=== PATIENT | male | born 1945 | race Caucasian/White ===

== ENCOUNTER 2024-09-03 08:57 | Inpatient (IN) ==
--- NOTE | 2024-09-03 09:02 | Emergency Department Note ---
Impression & Plan Sepsis, MKIE (acute kidney injury), Goals of care, counseling/discussion, Acute UTI, Multifocal pneumonia, Acute hypoxemic respiratory failure, Dementia ED Provider Note NAME: EVAN VELARDE AGE: 79 SEX: M : 1945 ARRIVES VIA: Ambulance INFORMANT: EMS report, nursing report ED PROVIDER(S): Parish Hernandez MD CHIEF COMPLAINT: Diarrhea, hypotension, hypoxia MEDICAL DECISION MAKING: Patient presents with the above. Patient nonverbal history of dementia. IV was established and blood work was obtained along with a chest x-ray. Patient ordered empiric IV Zosyn blood cultures had already received 1 L prior to arrival and ordered additional 2 L IV fluids. BioFire and MRSA swabs also obtained. Patient was started on high flow. I did speak with the patient's son Leonardo early on to determine goals of care. Son is amenable to treatment but not to intubation or CPR. DNR/DNI status. The patient's blood work shows a white count of 14 with a hemoglobin of 12.3. Platelet count is unremarkable. The patient does have associated MIKE with a creat of 3.8. Initial lactate of 2.6. Patient was still intermittently hypotensive. Patient was ordered additional 500 of fluid after receiving 1 L prehospital and 2 L in the emergency department. Patient did receive greater than 30 cc/kg bolus. Patient did have some improvement in his hypotension. Procalcitonin of 4.4. Initial lactate of 2.6 and repeat was less than 2. Urinalysis does show signs of infection. BioFire negative and chest x-ray does show multifocal pneumonia. MRSA negative. I did discuss the patient's case with the on-call hospitalist. He will discuss further with the patient's son about whether or not to administer any peripheral vasopressors. The patient was having decreased respiratory effort versus being more comfortable and did have hypoxia into the 70s. The patient was easily arousable and did have some improvement in saturations but did increase the patient's high flow settings to 30 L/min at 70%. After further discussion with respiratory therapy did recommend the patient be placed on BiPAP in order to help with further aeration of the lungs which initially had been avoided due to concerns for decreasing preload and exacerbating hypotension. In light of the patient's improvement in his blood pressure and decreased respiratory effort BiPAP was attempted and placed. I did speak with Dr. Chavez inpatient medicine service and the patient was admitted to the medicine service. Additional care deferred to inpatient service in consultation with the patient's son and goals of care. Critical Care: I have personally spent 125 minutes of critical care time in direct management of this patient. This includes bedside care, interpretation of diagnostic studies, and testing, discussion with consultants, patient, and family members, and other require inpatient management activities. This 125 minutes is in excess of all separately billable procedures. Discussion w/ other healthcare providers: Respiratory therapy Dr. Chavez inpatient medicine service Prior /Outside records reviewed: I reviewed part of a urology visit from August [address] Light. Patient with a history of prostate cancer's recent PSA of 26 he presented for a 6-month follow-up and get 6-month Lupron shots. Plan to follow-up in 6 months for repeat PSA and total testosterone. Differential diagnosis: Dehydration, UTI, pneumonia, metabolic derangment, electrolyte abnormalities, hypovolemia, anemia, cellulitis among others were considered. Diagnostics, as interpreted by me: ECG: Sinus with possible PVCs or intermittent left bundle branch block, rate of 96 occasionally wide QRS. No obvious scar Bosa criteria. Repeat EKG interpreted by myself Sinus rhythm rate of 84 normal intervals but noted to have a change to left bundle branch block with similar rate no obvious Sgarbossa criteria Cardiac monitoring: An order was placed for continuous cardiac monitoring. The monitor shows a rate of 89 with sinus rhythm. Patient was placed on pulse oximetry Medical decision rules: None Imaging studies: I informally interpreted the patient's chest x-ray shows multifocal pneumonia with formal report to follow. HPI: Patient presents from care facility with known history of dementia and is nonverbal. Reportedly had diarrhea beginning last night was noted to be hypotensive this morning. Also thought the patient had bilateral rhonchi was given multiple breathing treatments was noted to be at 86% on room air prior to arrival. Patient unable to provide any additional history. Reportedly a full code. No reported fever initial blood pressure 70s over 30s and subsequently improved after 1 L being administered by EMS. Heart rate in the high 100s per EMS. Per review of the prior records patient with known history of dementia as well as prostate cancer. Son provides some history of aspiration and concern for breathing issues. After discussing with the son if he does not turnaround with moderate measures like high flow or BiPAP along with fluids and antibiotics he does not want to do anything additionally like intubation or CPR. PAST MEDICAL HISTORY: See Below PAST SURGICAL HISTORY: See Below SOCIAL HISTORY: See Below HOME MEDICATIONS: See Below ALLERGIES: See Below VITALS: See Below PHYSICAL EXAMINATION: GENERAL: Ill in appearance, moderate distress. Nasal cannula in place. EYE EXAM: Normal conjunctiva. PERRL, no anisocoria and EOM's grossly intact w/o pain. OROPHARYNX: Dry mucus membranes, grossly normal dentition. NECK: Trachea midline, no stridor. LUNGS: Rhonchi bilaterally. Tachypneic, shallow breathing. HEART: NSR, no MRG. ABDOMEN: Abdomen soft, no masses, no rebound or guarding. BACK: No CVA TTP. SKIN: No rashes and no bruising. UPPER EXTREMITIES: Upper extremities are grossly normal. LOWER EXTREMITIES: Grossly normal, no edema. NEURO EXAM: Awake and alert does not follow basic commands, moves all 4 extremities. Past Med/Surg History Problem List (Updated 09/03/24 @ 16:27 by Parish Hernandez MD) Dementia (Acute) Acute hypoxemic respiratory failure (Acute) Multifocal pneumonia (Acute) Acute UTI (Acute) Goals of care, counseling/discussion (Acute) MIKE (acute kidney injury) (Acute) Diarrhea Sepsis (Acute) Urge incontinence Prostate cancer (Chronic 12/06/21) Medical History Alzheimer disease Dementia Hypertension Diverticulitis Allergic rhinitis Surgical History S/P rotator cuff repair Bilateral History of cystoscopy Hx of colonoscopy S/P left knee arthroscopy History of left knee replacement History of surgery Pilonidal cyst History of colon resection Sigmoid resection Family History Mother , 91yo Diabetes Heart failure Father , 72yo Coronary heart disease Rheumatic fever Sister Arrhythmia Pacemaker Son No problems noted. Son No problems noted. 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 How many Children do You have: 2 Feels Safe at Home: Yes Diet: regular caffeine: Yes (2 cups/day) during the past year weight has: remained stable Assistive Devices: BiPap, Oxygen - Continuous and Walker Allergies Allergies Allergy/AdvReac Type Severity Reaction Status Date / Time No Known Allergies Allergy Unverified 01/19/24 08:49 Home Meds Home Medications Medication Instructions Recorded Confirmed tamsulosin 0.4 mg capsule 0.4 mg PO DAILY 07/26/22 09/03/24 acetaminophen 325 mg capsule 650 mg PO BID Pain/Fever 11/02/22 09/03/24 cholecalciferol (vitamin D3) 50 50 mcg PO DAILY 11/02/22 09/03/24 mcg (2,000 unit) capsule cyanocobalamin (vitamin B-12) 1,000 mcg PO QAM 11/02/22 09/03/24 1,000 mcg tablet (Vitamin B-12) magnesium hydroxide 400 mg/5 mL 30 ml PO Q48H PRN Constipation 11/02/22 09/03/24 oral suspension (Milk of Magnesia) melatonin 3 mg capsule 3 mg PO HS 02/13/23 09/03/24 acetaminophen 325 mg tablet 650 mg PO Q4H PRN Pain/Fever 09/03/24 09/03/24 albuterol sulfate 2.5 mg/3 mL 2.5 mg continuous nebulization Q2H 09/03/24 09/03/24 (0.083 %) solution for nebulization PRN SOB/Wheezing bisacodyl 10 mg rectal suppository 10 mg CO Q48H PRN Constipation 09/03/24 09/03/24 (Dulcolax (bisacodyl)) cholestyramine (with sugar) 4 gram 2 g PO QAM Loose Stools 09/03/24 09/03/24 oral powder menthol 4 % topical gel (Biofreeze 1 applic topical BID B/L knee pain 09/03/24 09/03/24 (menthol)) Previous Rx's Medication Instructions Recorded vibegron 75 mg tablet (Gemtesa) 75 mg PO DAILY #90 tabs 08/19/22 Results & Data (ED) Vital Signs Vital Signs - 24 hr 09/03/24 09:07 09/03/24 09:11 09/03/24 09:17 Temperature 36.4 C L Temperature Source Oral Pulse Rate 97 H 89 Pulse Rate [Apical] Pulse Rate from SpO2 Sensor Pulse Rhythm Respiratory Rate 30 H Respiratory Effort / Characteristics Non-Labored Spontaneous Respiratory Depth Normal Respiratory Pattern Blood Pressure 87/52 L Blood Pressure Mean 63 Blood Pressure Position Sitting Pulse Oximetry 89 L 89 L Oxygen Delivery Method Room Air Room Air Oxygen Flow Rate Fraction of Inspired Oxygen Sepsis Recent Fever Within 48 Hours No Sepsis New/Unexplained Change in Mental Status No Sepsis Action Taken by Nursing Physician Notified Oxygen Flow Rate - Titration 4 Pulse Oximetry Post Tiitration 92 09/03/24 09:30 09/03/24 09:30 09/03/24 09:35 Temperature Temperature Source Pulse Rate 97 H 93 H Pulse Rate [Apical] 103 H Pulse Rate from SpO2 Sensor Pulse Rhythm Respiratory Rate 30 H 29 H 32 H Respiratory Effort / Characteristics Spontaneous Respiratory Depth Respiratory Pattern Blood Pressure 78/47 L 89/58 L Blood Pressure Mean 59 63 Blood Pressure Position Pulse Oximetry 94 96 96 Oxygen Delivery Method High Flow Nasal Cannula High Flow Nasal Cannula High Flow Nasal Cannula Oxygen Flow Rate 25 Fraction of Inspired Oxygen 60 Sepsis Recent Fever Within 48 Hours Sepsis New/Unexplained Change in Mental Status Sepsis Action Taken by Nursing Oxygen Flow Rate - Titration Pulse Oximetry Post Tiitration 09/03/24 09:38 09/03/24 09:40 09/03/24 09:42 Temperature Temperature Source Pulse Rate 84 95 H 95 H Pulse Rate [Apical] Pulse Rate from SpO2 Sensor 94 H Pulse Rhythm Regular Respiratory Rate 14 36 H Respiratory Effort / Characteristics Respiratory Depth Respiratory Pattern Blood Pressure 87/58 L Blood Pressure Mean 66 Blood Pressure Position Pulse Oximetry 95 93 93 Oxygen Delivery Method High Flow Nasal Cannula High Flow Nasal Cannula Oxygen Flow Rate Fraction of Inspired Oxygen Sepsis Recent Fever Within 48 Hours Sepsis New/Unexplained Change in Mental Status Sepsis Action Taken by Nursing Oxygen Flow Rate - Titration Pulse Oximetry Post Tiitration 09/03/24 09:45 09/03/24 09:50 09/03/24 09:50 Temperature Temperature Source Pulse Rate 88 88 Pulse Rate [Apical] Pulse Rate from SpO2 Sensor Pulse Rhythm Respiratory Rate 39 H 30 H 20 Respiratory Effort / Characteristics Respiratory Depth Respiratory Pattern Blood Pressure 89/56 L 99/61 L 99/61 L Blood Pressure Mean 78 85 85 Blood Pressure Position Pulse Oximetry 95 94 93 Oxygen Delivery Method High Flow Nasal Cannula High Flow Nasal Cannula Oxygen Flow Rate Fraction of Inspired Oxygen Sepsis Recent Fever Within 48 Hours Sepsis New/Unexplained Change in Mental Status Sepsis Action Taken by Nursing Oxygen Flow Rate - Titration Pulse Oximetry Post Tiitration 09/03/24 10:05 09/03/24 10:10 09/03/24 10:15 Temperature Temperature Source Pulse Rate 88 89 88 Pulse Rate [Apical] Pulse Rate from SpO2 Sensor Pulse Rhythm Respiratory Rate 20 17 17 Respiratory Effort / Characteristics Respiratory Depth Respiratory Pattern Blood Pressure 108/55 L 82/58 L 88/50 L Blood Pressure Mean 67 71 70 Blood Pressure Position Pulse Oximetry 92 94 94 Oxygen Delivery Method Oxygen Flow Rate Fraction of Inspired Oxygen Sepsis Recent Fever Within 48 Hours Sepsis New/Unexplained Change in Mental Status Sepsis Action Taken by Nursing Oxygen Flow Rate - Titration Pulse Oximetry Post Tiitration 09/03/24 10:20 09/03/24 10:25 09/03/24 10:35 Temperature Temperature Source Pulse Rate 87 83 80 Pulse Rate [Apical] Pulse Rate from SpO2 Sensor Pulse Rhythm Respiratory Rate 18 Respiratory Effort / Characteristics Respiratory Depth Respiratory Pattern Blood Pressure 81/48 L 88/68 L 86/48 L Blood Pressure Mean 52 72 57 Blood Pressure Position Pulse Oximetry 88 L Oxygen Delivery Method High Flow Nasal Cannula Oxygen Flow Rate Fraction of Inspired Oxygen Sepsis Recent Fever Within 48 Hours Sepsis New/Unexplained Change in Mental Status Sepsis Action Taken by Nursing Oxygen Flow Rate - Titration Pulse Oximetry Post Tiitration 09/03/24 10:40 09/03/24 10:45 09/03/24 10:50 Temperature Temperature Source Pulse Rate 88 85 86 Pulse Rate [Apical] Pulse Rate from SpO2 Sensor Pulse Rhythm Respiratory Rate Respiratory Effort / Characteristics Respiratory Depth Respiratory Pattern Blood Pressure 90/46 L 88/45 L 87/50 L Blood Pressure Mean 54 55 57 Blood Pressure Position Pulse Oximetry Oxygen Delivery Method Oxygen Flow Rate Fraction of Inspired Oxygen Sepsis Recent Fever Within 48 Hours Sepsis New/Unexplained Change in Mental Status Sepsis Action Taken by Nursing Oxygen Flow Rate - Titration Pulse Oximetry Post Tiitration 09/03/24 10:50 09/03/24 10:50 09/03/24 10:50 Temperature Temperature Source Pulse Rate 89 Pulse Rate [Apical] Pulse Rate from SpO2 Sensor Pulse Rhythm Respiratory Rate Respiratory Effort / Characteristics Respiratory Depth Respiratory Pattern Blood Pressure 87/50 L 87/50 L 87/50 L Blood Pressure Mean 57 57 57 Blood Pressure Position Pulse Oximetry Oxygen Delivery Method Oxygen Flow Rate Fraction of Inspired Oxygen Sepsis Recent Fever Within 48 Hours Sepsis New/Unexplained Change in Mental Status Sepsis Action Taken by Nursing Oxygen Flow Rate - Titration Pulse Oximetry Post Tiitration 09/03/24 10:55 09/03/24 11:05 09/03/24 11:11 Temperature Temperature Source Pulse Rate 86 89 Pulse Rate [Apical] Pulse Rate from SpO2 Sensor Pulse Rhythm Respiratory Rate 29 H Respiratory Effort / Characteristics Respiratory Depth Respiratory Pattern Blood Pressure 84/47 L 90/55 L Blood Pressure Mean 51 63 Blood Pressure Position Pulse Oximetry 99 Oxygen Delivery Method BiPAP Oxygen Flow Rate Fraction of Inspired Oxygen Sepsis Recent Fever Within 48 Hours Sepsis New/Unexplained Change in Mental Status Sepsis Action Taken by Nursing Oxygen Flow Rate - Titration Pulse Oximetry Post Tiitration 09/03/24 11:12 09/03/24 11:15 09/03/24 11:20 Temperature Temperature Source Pulse Rate 85 87 85 Pulse Rate [Apical] Pulse Rate from SpO2 Sensor Pulse Rhythm Respiratory Rate 28 H 37 H Respiratory Effort / Characteristics Respiratory Depth Respiratory Pattern Blood Pressure 105/61 91/65 L Blood Pressure Mean 74 71 Blood Pressure Position Pulse Oximetry 98 99 Oxygen Delivery Method Oxygen Flow Rate Fraction of Inspired Oxygen Sepsis Recent Fever Within 48 Hours Sepsis New/Unexplained Change in Mental Status Sepsis Action Taken by Nursing Oxygen Flow Rate - Titration Pulse Oximetry Post Tiitration 09/03/24 11:25 09/03/24 11:30 09/03/24 11:40 Temperature Temperature Source Pulse Rate 85 85 Pulse Rate [Apical] Pulse Rate from SpO2 Sensor Pulse Rhythm Respiratory Rate 37 H 31 H Respiratory Effort / Characteristics Respiratory Depth Respiratory Pattern Blood Pressure 104/57 L 99/67 L 107/57 L Blood Pressure Mean 80 71 83 Blood Pressure Position Pulse Oximetry 99 100 Oxygen Delivery Method Oxygen Flow Rate Fraction of Inspired Oxygen Sepsis Recent Fever Within 48 Hours Sepsis New/Unexplained Change in Mental Status Sepsis Action Taken by Nursing Oxygen Flow Rate - Titration Pulse Oximetry Post Tiitration 09/03/24 11:45 09/03/24 12:02 Temperature Temperature Source Pulse Rate 86 85 Pulse Rate [Apical] Pulse Rate from SpO2 Sensor Pulse Rhythm Respiratory Rate 32 H 23 Respiratory Effort / Characteristics Spontaneous Respiratory Depth Normal Respiratory Pattern Regular Tachypnea Blood Pressure 97/52 L Blood Pressure Mean 67 Blood Pressure Position Pulse Oximetry 97 96 Oxygen Delivery Method Oxygen Flow Rate Fraction of Inspired Oxygen 65 Sepsis Recent Fever Within 48 Hours Sepsis New/Unexplained Change in Mental Status Sepsis Action Taken by Nursing Oxygen Flow Rate - Titration Pulse Oximetry Post Tiitration Home Medications Current Medication List: was personally reviewed by me Laboratory Data Attestation: I reviewed the patient's lab results. 09/03/24 09:29 09/03/24 09:29 Lab Results 09/03/24 09/03/24 09/03/24 Range/Units 09:29 09:35 09:47 WBC 14.17 H (4.8-10.8) K/ul RBC 4.33 L (4.70-6.10) M/uL Hgb 12.3 L (14.0-18.0) g/dl POC Hgb 12.6 L (14.0-18.0) g/dl Hct 38.2 L (42.0-52.0) % POC Hct 37 L (42-52) % MCV 88.2 (80.0-100.0) fL MCH 28.4 (25.0-34.0) pg MCHC 32.2 (32.0-36.0) g/dL RDW Std Deviation 51.7 H (36.4-46.3) fL RDW Coeff of Susan 15.9 H (11.5-14.5) % Plt Count 287 (130-400) K/uL MPV 12.2 (9.4-12.4) fL Immature Gran % (Auto) 0.5 % Neut % (Auto) 86.2 % Lymph % (Auto) 6.8 % Scott % (Auto) 6.4 % Eos % (Auto) 0.0 % Baso % (Auto) 0.1 % Neut # (Auto) 12.23 H (1.40-6.50) K/uL Lymph # (Auto) 0.96 L (1.20-3.40) K/uL Scott # (Auto) 0.90 H (0.11-0.59) K/uL Eos # (Auto) 0.00 (0.00-0.50) K/uL Baso # (Auto) 0.01 (0.00-0.20) K/uL Immature Gran # (Auto) 0.07 (0.01-0.20) K/uL PT 11.2 (9.0-12.0) Seconds INR 1.0 (0.9-1.1) APTT 25 (21-31) Seconds PTT Ratio 0.9 VBG pH (7.36-7.41) VBG pCO2 (38-50) mmHg VBG pO2 mmHg VBG HCO3 mmol/L VBG O2 Saturation % VBG Base Excess mEq/L POC Sodium 147 H (135-144) mmol/L Sodium 147 H (136-145) mmol/L POC Potassium 3.8 (3.3-5.0) mmol/L Potassium 4.0 (3.5-5.1) mmol/L POC Chloride 109 (101-112) mmol/L Chloride 109 H (98-107) mmol/L Carbon Dioxide 26 (21-32) mmol/L POC Total CO2 24 (24-31) mmol/L Anion Gap 12 H (3-11) POC Anion Gap 19.0 (16-25) mmol/L POC BUN 81 H (7-18) mg/dl BUN 93 H D (6-23) mg/dl Creatinine 3.82 H D (0.6-1.4) mg/dl POC Creatinine 4.0 H (0.6-1.3) mg/dl Est Cr Clr Drug Dosing 18.4 ml/min eGFR 15.43 BUN/Creatinine Ratio 24.3 H (10-20) Glucose 128 H (70-99(Fasting)) mg/dl POC Glucose (other) 132 H (70-99) mg/dl Lactate 2.6 H* (0.4-2.0) mmol/L Calcium 9.1 (8.6-10.3) mg/dl POC Ioniz Calcium Katelynn 1.10 L (1.12-1.32) mmol/l Magnesium 2.3 (1.7-2.4) mg/dl Total Bilirubin 0.7 D (0.2-1.0) mg/dl Direct Bilirubin 0.2 (0-0.2) mg/dl AST 47 H (13-39) U/L ALT 40 (7-52) U/L Alkaline Phosphatase 46 (34-104) U/L Troponin I High Sens 63.8 H* (0-20) pg/ml B-Natriuretic Peptide (0-100) pg/ml Total Protein 6.1 (6.0-8.3) gm/dl Albumin 2.9 L (3.4-5.0) gm/dl Procalcitonin 4.42 H (0-0.5) ng/ml Nasal Screen MRSA (PCR) Negative (Negative) Adenovirus (PCR) (NotDetected) B. pertussis DNA (PCR) (NotDetected) B.parapertussis DNA PCR (NotDetected) C. pneumoniae DNA (PCR) (NotDetected) Coronavirus OC43 (PCR) (NotDetected) Coronavirus HKU1 (PCR) (NotDetected) Coronavirus 229E (PCR) (NotDetected) SARS-CoV-2 (PCR) (NotDetected) Coronavirus NL63 (PCR) (NotDetected) Human Metapneumovir PCR (NotDetected) Influenza Type A (PCR) (NotDetected) Influenza Type B (PCR) (NotDetected) M. pneumoniae (PCR) (NotDetected) Parainfluenza 1 (PCR) (NotDetected) Parainfluenza 2 (PCR) (NotDetected) Parainfluenza 3 (PCR) (NotDetected) Parainfluenza 4 (PCR) (NotDetected) RSV (PCR) (NotDetected) Entero/Rhino (PCR) (NotDetected) 09/03/24 09/03/24 Range/Units 11:04 11:16 WBC (4.8-10.8) K/ul RBC (4.70-6.10) M/uL Hgb (14.0-18.0) g/dl POC Hgb (14.0-18.0) g/dl Hct (42.0-52.0) % POC Hct (42-52) % MCV (80.0-100.0) fL MCH (25.0-34.0) pg MCHC (32.0-36.0) g/dL RDW Std Deviation (36.4-46.3) fL RDW Coeff of Susan (11.5-14.5) % Plt Count (130-400) K/uL MPV (9.4-12.4) fL Immature Gran % (Auto) % Neut % (Auto) % Lymph % (Auto) % Scott % (Auto) % Eos % (Auto) % Baso % (Auto) % Neut # (Auto) (1.40-6.50) K/uL Lymph # (Auto) (1.20-3.40) K/uL Scott # (Auto) (0.11-0.59) K/uL Eos # (Auto) (0.00-0.50) K/uL Baso # (Auto) (0.00-0.20) K/uL Immature Gran # (Auto) (0.01-0.20) K/uL PT (9.0-12.0) Seconds INR (0.9-1.1) APTT (21-31) Seconds PTT Ratio VBG pH 7.41 (7.36-7.41) VBG pCO2 41 (38-50) mmHg VBG pO2 73 mmHg VBG HCO3 26 mmol/L VBG O2 Saturation 96.5 % VBG Base Excess 1.2 mEq/L POC Sodium (135-144) mmol/L Sodium (136-145) mmol/L POC Potassium (3.3-5.0) mmol/L Potassium (3.5-5.1) mmol/L POC Chloride (101-112) mmol/L Chloride (98-107) mmol/L Carbon Dioxide (21-32) mmol/L POC Total CO2 (24-31) mmol/L Anion Gap (3-11) POC Anion Gap (16-25) mmol/L POC BUN (7-18) mg/dl BUN (6-23) mg/dl Creatinine (0.6-1.4) mg/dl POC Creatinine (0.6-1.3) mg/dl Est Cr Clr Drug Dosing ml/min eGFR BUN/Creatinine Ratio (10-20) Glucose (70-99(Fasting)) mg/dl POC Glucose (other) (70-99) mg/dl Lactate 1.9 (0.4-2.0) mmol/L Calcium (8.6-10.3) mg/dl POC Ioniz Calcium Katelynn (1.12-1.32) mmol/l Magnesium (1.7-2.4) mg/dl Total Bilirubin (0.2-1.0) mg/dl Direct Bilirubin (0-0.2) mg/dl AST (13-39) U/L ALT (7-52) U/L Alkaline Phosphatase (34-104) U/L Troponin I High Sens (0-20) pg/ml B-Natriuretic Peptide 106 H (0-100) pg/ml Total Protein (6.0-8.3) gm/dl Albumin (3.4-5.0) gm/dl Procalcitonin (0-0.5) ng/ml Nasal Screen MRSA (PCR) (Negative) Adenovirus (PCR) Not Detected (NotDetected) B. pertussis DNA (PCR) Not Detected (NotDetected) B.parapertussis DNA PCR Not Detected (NotDetected) C. pneumoniae DNA (PCR) Not Detected (NotDetected) Coronavirus OC43 (PCR) Not Detected (NotDetected) Coronavirus HKU1 (PCR) Not Detected (NotDetected) Coronavirus 229E (PCR) Not Detected (NotDetected) SARS-CoV-2 (PCR) Not Detected (NotDetected) Coronavirus NL63 (PCR) Not Detected (NotDetected) Human Metapneumovir PCR Not Detected (NotDetected) Influenza Type A (PCR) Not Detected (NotDetected) Influenza Type B (PCR) Not Detected (NotDetected) M. pneumoniae (PCR) Not Detected (NotDetected) Parainfluenza 1 (PCR) Not Detected (NotDetected) Parainfluenza 2 (PCR) Not Detected (NotDetected) Parainfluenza 3 (PCR) Not Detected (NotDetected) Parainfluenza 4 (PCR) Not Detected (NotDetected) RSV (PCR) Not Detected (NotDetected) Entero/Rhino (PCR) Not Detected (NotDetected) Administered Medications Lactated Ringer's (Lr) 1,000 mls @ 125 mls/hr IV .Q8H YAHAIRA Stop: 09/04/24 13:29 Last Admin: 09/03/24 13:27 Dose: 125 mls/hr Documented By: CM Discontinued Medications Sodium Chloride (Nss) 1,000 mls @ 999 mls/hr IV .Q1H1M YAHAIRA Stop: 09/03/24 11:30 Last Infusion: 09/03/24 10:19 Dose: Infused Documented By: Admin: 09/03/24 09:34 Dose: 999 mls/hr Documented By: Infusion: 09/03/24 09:34 Dose: Infused Documented By: Admin: 09/03/24 09:32 Dose: 999 mls/hr Documented By: ANT Piperacillin Sod/Tazobactam Sod (Zosyn) 4.5 gm in 100 mls @ 200 mls/hr IV NOW STA Stop: 09/03/24 09:45 Last Infusion: 09/03/24 10:08 Dose: Infused Documented By: Admin: 09/03/24 09:34 Dose: 200 mls/hr Documented By: ANT Norepinephrine Bitartrate (Levophed/D5w) 4 mg in 250 mls @ 17.681 mls/hr IV .Q14H9M [facility]; Protocol Stop: 10/03/24 11:14 Last Admin: 09/03/24 11:49 Dose: Not Given Documented By: ANT Imaging Data Radiologist's Impression: Chest X-Ray 09/03/24 09:16 XR chest 1V portable HISTORY: 79 years-old Male Sepsis COMPARISON: 02/05/2022 TECHNIQUE: AP view of the chest FINDINGS: Cardiac silhouette is enlarged. The lungs are hypoinflated. Pulmonary vascular congestion with bilateral mixed interstitial and alveolar opacities. Probable small pleural effusions. No pneumothorax. Gaseous distention of the stomach. The bones appear grossly intact. IMPRESSION: Hypoinflation with bilateral mixed interstitial and alveolar opacities. Findings suggest multifocal pneumonia with asymmetric pulmonary edema considered less likely. Follow-up recommended. ACT 112: Negative or not required by law. The above report was generated using voice recognition software. It may contain grammatical, syntax or spelling errors. Electronically signed by: Robin Laboy M.D. 09/03/2024 9:52 AM Abdomen/Pelvis CT 09/03/24 10:[address] WITHOUT CONTRAST CT DOSE: 1576.9 mGy.cm HISTORY: Acute kidney injury with urinary tract infection MIKE, UTI sepsis TECHNIQUE: Multiaxial CT images of the abdomen and pelvis were performed without contrast. A dose lowering technique was utilized adhering to the principles of ALARA. COMPARISON STUDY: None. FINDINGS: Cardiomegaly with extensive coronary artery calcifications. Trace pleural effusions with dependent bibasilar consolidation and air bronchograms within a mixed groundglass opacities. No pneumatosis or pneumoperitoneum. The unenhanced spleen, pancreas and adrenal glands are unremarkable. Distended gallbladder with wall thickening and pericholecystic fluid. Unremarkable liver. Cysts of the kidneys measuring up to 4.7 cm on the right. No ureteral calculi or hydronephrosis. Decompressed bladder with wall thickening and Goldman catheter in place. Prostatomegaly. Small fat filled left inguinal hernia. Atherosclerosis of the aorta without aneurysm. Nonspecific mid to distal esophageal mild wall thickening. Distended stomach. Mild likely reactive wall thickening of the pylorus duodenal junction. Moderate- sized duodenal diverticulum. No high-grade small bowel obstruction. Scattered small bowel air-fluid levels. Moderate rectal fecal retention with associated wall thickening and perirectal stranding/edema. Anastomotic sutures in the mid sigmoid. Colonic diverticulosis without acute diverticulitis. Scattered colonic air-fluid levels. Noninflamed appendix. No acute fracture identified. IMPRESSION: 1. Findings suggestive of acute cholecystitis. Findings could be correlated with ultrasound. 2. No urolithiasis or hydronephrosis. 3. Moderate fecal retention of the rectum with probable stercoral proctitis. 4. Colonic diverticulosis. 5. Trace pleural effusions with moderate bibasilar consolidation which may represent atelectasis versus pneumonia. 6. Additional findings as above. ACT 112: Negative or not required by law. The above report was generated using voice recognition software. It may contain grammatical, syntax or spelling errors. Electronically signed by: Robin Laboy M.D. 09/03/2024 1:07 PM Discharge Plan Visit Data Chief Complaint: Hypotension Stated Complaint: HYPOTENSION ED Provider: Parish Hernandez Discharge Problem: Sepsis, MIKE (acute kidney injury), Goals of care, counseling/discussion, Acute UTI, Multifocal pneumonia, Acute hypoxemic respiratory failure, Dementia Discharge Instructions Interventions: ED Discharge Assessment Last Done: 09/03/24 12:50 Discharge Problem: Sepsis Qualifiers: Sepsis type: sepsis due to unspecified organism Sepsis acute organ dysfunction status: with acute organ dysfunction Severe sepsis acute organ dysfunction type: acute respiratory failure Acute respiratory failure type: with hypoxia Severe sepsis shock status: unspecified Qualified Code(s): A41.9 - Sepsis, unspecified organism Dementia Qualifiers: Dementia type: unspecified type Dementia severity: unspecified severity D ementia behavioral or psychological symptom: unspecified whether behavioral, psychotic, or mood disturbance or anxiety Qualified Code(s): F03.90 - Unspecified dementia, unspecified severity, without behavioral disturbance, psychotic disturbance, mood disturbance, and anxiety
[2024-09-03] MEDS: SODIUM CHLORIDE 0.9% 1,000 ML IV SCH (09:32)
[2024-09-03] MEDS: PIPERACILLIN/TAZOBACTAM 4.5 GM/100 ML BAG IV STA (09:34)
--- NOTE | 2024-09-03 09:54 | XRay Report ---
XR chest 1V portable HISTORY: 79 years-old Male Sepsis COMPARISON: 02/05/2022 TECHNIQUE: AP view of the chest FINDINGS: Cardiac silhouette is enlarged. The lungs are hypoinflated. Pulmonary vascular congestion with bilate ral mixed interstitial and alveolar opacities. Probable small pleural effusions. No pneumothorax. Gas eous distention of the stomach. The bones appear grossly intact. IMPRESSION: Hypoinflation with bilateral mixed interstitial and alveolar opacities. Findings suggest multifocal pneumonia with asymmetric pulmonary edema considered less likely. Follow-up recommended. ACT 112: Negative or not required by law. The above report was generated using voice recognition software. It may contain grammatical, syntax o r spelling errors. Electronically signed by: Robin Laboy M.D. 09/03/2024 9:52 AM
[2024-09-03 09:59] LABS: iSTAT Hemoglobin 12.6 g/dl (14.0-18.0); iSTAT Ionized Calcium 1.1 mmol/l (1.12-1.32); iSTAT Potassium 3.8 mmol/L (3.3-5.0)
[2024-09-03 10:11] LABS: Basophils # (auto) 0.01 K/uL (0.00-0.20); Basophils % (auto) 0.1 %; Hematocrit (blood only) 38.2 % (42.0-52.0); Hemoglobin 12.3 g/dl (14.0-18.0); Immature Granulocytes # (auto) 0.07 K/uL (0.01-0.20); Immature Granulocytes % (auto) 0.5 %; Lymphocytes # (auto) 0.96 K/uL (1.20-3.40); Lymphocytes % (auto) 6.8 %; Mean Corpuscular Hemoglobin 28.4 pg (25.0-34.0); Mean Corpuscular Hgb Conc 32.2 g/dL (32.0-36.0); Mean Corpuscular Volume 88.2 fL (80.0-100.0); Mean Platelet Volume 12.2 fL (9.4-12.4); Monocytes % (auto) 6.4 %; Neutrophils # (auto) 12.23 K/uL (1.40-6.50); Neutrophils % (auto) 86.2 %; Platelet Count 287 K/uL (130-400); RDW Coefficient of Variation 15.9 % (11.5-14.5); RDW Standard Deviation 51.7 fL (36.4-46.3); Red Blood Count 4.33 M/uL (4.70-6.10); White Blood Count 14.17 K/ul (4.8-10.8)
[2024-09-03 10:36] LABS: Partial Thromboplastin Ratio 0.9; Partial Thromboplastin Time 25 Seconds (21-31); Prothrombin Time 11.2 Seconds (9.0-12.0)
[2024-09-03 10:37] LABS: Amorphous Sediment Urine Present (None Prsent); Appearance Urine Turbid (Clear); Bacteria Urine Automated None Seen (None Seen); Bilirubin Urine 2+ (Negative); Blood Urine Trace (Negative); Color Urine Dark Yellow; Epithelial Cell Urine Auto 0-2 /hpf (0-2); Glucose Urine UA 1+ (Negative); Ketones Urine Trace (Negative); Leukocyte Esterase Urine 2+ (Negative); Nitrite Urine Positive (Negative); Protein Urine 1+ (Negative); RBC Urine Automated >20 /hpf (0-2); Specific Gravity Urine 1.029 (1.000-1.030); Urobilinogen Urine Negative (Negative); WBC Urine Automated 21-50 /hpf (0-5)
[2024-09-03 10:44] LABS: Albumin Level 2.9 gm/dl (3.4-5.0); BUN Creatinine Ratio 24.3 (10-20); Bilirubin Direct 0.2 mg/dl (0-0.2); Bilirubin,Total 0.7 mg/dl (0.2-1.0); Calcium 9.1 mg/dl (8.6-10.3); Creatinine Clr Calc Pharmacy 18.4 ml/min; Magnesium 2.3 mg/dl (1.7-2.4); Total Protein 6.1 gm/dl (6.0-8.3); Troponin I High Sensitivity 63.8 pg/ml (0-20)
[2024-09-03] MEDS ORDERED: STAT IV Infusion **Titration per Protocol STA (11:07)
[2024-09-03 11:11] LABS: Base Excess VBG 1.2 mEq/L; HCO3 VBG 26 mmol/L; Oxygen Saturation VBG 96.5 %; PCO2 VBG 41 mmHg (38-50); PO2 VBG 73 mmHg; pH VBG 7.41 (7.36-7.41)
--- NOTE | 2024-09-03 11:16 | History & Physical Report ---
Date of Service September 03, 2024 Assessment & Plan (1) Sepsis: Plan: Suspect secondary to urinary source, less likely pneumonia/diarrhea Follow up blood and urine cultures although notably may be negative as ceftriaxone started the day prior to admission No cultures taken outpatient to follow up on WBC appears to have been responding to ceftriaxone 1g IM given outpatient therefore if cultures negative consider deescalation to ceftriaxone Empiric treatment with IV Zosyn pending culture results Levophed ordered by BP improved with IV fluids and never started therefore not septic shock - discussed with sons at bedside and now BP has improved if it gets worse again will switch to comfort care approiach rather than start vasopressors (2) MIKE (acute kidney injury): Plan: Suspect secondary to hypotension and pre-renal from diarrhea in setting of valsartan use Last took valsartan 09/01, discontinued since CT A/P wo IV contrast to r/o obstructive cause Continue maintenance IV fluids with LR, will avoid D5w initially to correct hypernatremia to avoid worsening respiratory status / pulmonary edema (3) Diarrhea: Plan: Stool and c. 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 Unable to get any history from patient given non verbal with dementia at baseline. He opens his eyes to voice and able to follow simple commands such as test rider fingers. History obtained from ER provider, hand over noted and FCO Hernadez (charge nurse at [facility]). Patient spiked a temperature yesterday morning of 102 degrees Fahrenheit around 6am. He was seen by Dr Long and had increased respiratory rate 30, audible wheezing, new hypoxia. CXR was negative but he was started on Ceftriaxone 1g IM daily to cover for pneumonia. Valsartan was discontinued and ordered to increased oral fluid intake. Overnight he started having liquid stool and duoneb for wheezing and shortness of breath. This morning he was more hypotensive with his sBP in 50s and EMS called. He received 1L NSS bolus prior to arrival in the ER. At baseline he is a full body lift, doesn't communicate, eats with assistance pureed diet. He arrives with a POLST form wanting full resuscitation however ER provider discussed with his son over the phone and wishes to change this to DNR/DNI. Allergies Allergy/AdvReac Type Severity Reaction Status Date / Time No Known Allergies Allergy Unverified 01/19/24 08:49 Home Medications Medication Instructions Recorded Confirmed Type donepezil 10 mg tablet 10 mg PO QAM 02/05/22 02/13/23 History tamsulosin 0.4 mg capsule 0.4 mg PO DAILY 07/26/22 02/13/23 History vibegron 75 mg tablet (Gemtesa) 75 mg PO DAILY #90 tabs 08/19/22 02/13/23 Rx acetaminophen 325 mg capsule 650 mg PO QID PRN 11/02/22 02/13/23 History bisacodyl 10 mg rectal suppository 10 mg NJ Q48H PRN 11/02/22 02/13/23 History (Dulcolax (bisacodyl)) cholecalciferol (vitamin D3) 50 50 mcg PO DAILY 11/02/22 02/13/23 History mcg (2,000 unit) capsule cyanocobalamin (vitamin B-12) 1,000 mcg PO QAM 11/02/22 02/13/23 History 1,000 mcg tablet (Vitamin B-12) eplerenone 25 mg tablet 25 mg PO DAILY 11/02/22 02/13/23 History magnesium hydroxide 400 mg/5 mL 30 ml PO Q48H PRN 11/02/22 02/13/23 History oral suspension (Milk of Magnesia) valsartan 40 mg tablet 40 mg PO DAILY 11/02/22 02/13/23 History melatonin 3 mg capsule 3 mg PO HS PRN 02/13/23 02/13/23 History nutritional supplements ea PO 01/19/24 01/19/24 History valsartan 40 mg tablet 40 mg PO BID 01/19/24 01/19/24 History Past Med/Surg History Problem List (Updated 09/03/24 @ 13:19 by Bharath Chavez MD) Goals of care, counseling/discussion MIKE (acute kidney injury) Diarrhea Sepsis Urge incontinence Prostate cancer (Chronic 12/06/21) Medical History Alzheimer disease Dementia Hypertension Diverticulitis Allergic rhinitis Surgical History S/P rotator cuff repair Bilateral History of cystoscopy Hx of colonoscopy S/P left knee arthroscopy History of left knee replacement History of surgery Pilonidal cyst History of colon resection Sigmoid resection Family History Mother , 91yo Diabetes Heart failure Father , 72yo Coronary heart disease Rheumatic fever Sister Arrhythmia Pacemaker Son No problems noted. Son No problems noted. 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 How many Children do You have: 2 Feels Safe at Home: Yes Diet: regular caffeine: Yes (2 cups/day) during the past year weight has: remained stable Assistive Devices: Walker Review of Systems Review of Systems: Unobtainable due to cognitive status Physical Exam Constitutional: well developed and + acute distress (increased respiratory rate); + not well nourished Eyes: PERRL, conjunctivae normal, anicteric sclerae ENMT: external ear and nose normal, oropharynx normal Respiratory: normal respiratory effort; no respiratory distress Auscultation: + rhonchi (throughout); breath sounds present, no diminished lung sounds and no wheezes Cardiovascular: Rate/Rhythm: regular rate and regular rhythm Gastrointestinal (Abdomen): Inspection/Auscultation: + abdomen distended Percussion/Palpation: abdomen soft; abdomen nontender, no guarding and abdomen not rigid Skin: no rashes, warm and dry (no areas of cellulitis noted) Neurologic: moves all extremities and awake; not confused Psychiatric: Orientation: alert (to voice); + not oriented x 3 (non verbal at baseline) Genitourinary: no CVA tenderness Results & Data Results & Data Vital Signs (Past 12 Hours) Vital Signs Temp Pulse Pulse Resp BP Pulse Ox O2 Del Method 09/03/24 11:12 85 09/03/24 11:11 89 09/03/24 10:55 86 29 H 84/47 L 99 BiPAP 09/03/24 10:50 87/50 L 09/03/24 10:50 87/50 L 09/03/24 10:50 89 87/50 L 09/03/24 10:50 86 87/50 L 09/03/24 10:45 85 88/45 L 09/03/24 10:40 88 90/46 L 09/03/24 10:35 80 86/48 L 09/03/24 10:25 83 88/68 L 09/03/24 10:20 87 18 81/48 L 88 L High Flow Nasal Cannula 09/03/24 10:15 88 17 88/50 L 94 09/03/24 10:10 89 17 82/58 L 94 09/03/24 10:05 88 20 108/55 L 92 09/03/24 09:50 88 20 99/61 L 93 09/03/24 09:50 30 H 99/61 L 94 High Flow Nasal Cannula 09/03/24 09:45 88 39 H 89/56 L 95 High Flow Nasal Cannula 09/03/24 09:42 95 H 36 H 93 09/03/24 09:40 95 H 87/58 L 93 High Flow Nasal Cannula 09/03/24 09:38 84 14 95 High Flow Nasal Cannula 09/03/24 09:35 93 H 32 H 89/58 L 96 High Flow Nasal Cannula 09/03/24 09:30 97 H 29 H 78/47 L 96 High Flow Nasal Cannula 09/03/24 09:30 103 H 30 H 94 High Flow Nasal Cannula 09/03/24 09:17 89 09/03/24 09:11 89 L Room Air 09/03/24 09:07 36.4 C L 97 H 30 H 87/52 L 89 L Room Air O2 Flow Rate FiO2 09/03/24 11:12 09/03/24 11:11 09/03/24 10:55 09/03/24 10:50 09/03/24 10:50 09/03/24 10:50 09/03/24 10:50 09/03/24 10:45 09/03/24 10:40 09/03/24 10:35 09/03/24 10:25 09/03/24 10:20 09/03/24 10:15 09/03/24 10:10 09/03/24 10:05 09/03/24 09:50 09/03/24 09:50 09/03/24 09:45 09/03/24 09:42 09/03/24 09:40 09/03/24 09:38 09/03/24 09:35 09/03/24 09:30 09/03/24 09:30 25 60 09/03/24 09:17 09/03/24 09:11 09/03/24 09:07 Laboratory Results Abnormal lab results 09/03/24 09/03/24 09/03/24 Range/Units 09:29 09:47 11:04 WBC 14.17 H (4.8-10.8) K/ul RBC 4.33 L (4.70-6.10) M/uL Hgb 12.3 L (14.0-18.0) g/dl POC Hgb 12.6 L (14.0-18.0) g/dl Hct 38.2 L (42.0-52.0) % POC Hct 37 L (42-52) % RDW Std Deviation 51.7 H (36.4-46.3) fL RDW Coeff of Susan 15.9 H (11.5-14.5) % Neut # (Auto) 12.23 H (1.40-6.50) K/uL Lymph # (Auto) 0.96 L (1.20-3.40) K/uL [place] # (Auto) 0.90 H (0.11-0.59) K/uL POC Sodium 147 H (135-144) mmol/L Sodium 147 H (136-145) mmol/L Chloride 109 H (98-107) mmol/L Anion Gap 12 H (3-11) POC BUN 81 H (7-18) mg/dl BUN 93 H D (6-23) mg/dl Creatinine 3.82 H D (0.6-1.4) mg/dl POC Creatinine 4.0 H (0.6-1.3) mg/dl BUN/Creatinine Ratio 24.3 H (10-20) Glucose 128 H (70-99(Fasting)) mg/dl POC Glucose (other) 132 H (70-99) mg/dl Lactate 2.6 H* (0.4-2.0) mmol/L POC Ioniz Calcium Katelynn 1.10 L (1.12-1.32) mmol/l AST 47 H (13-39) U/L Troponin I High Sens 63.8 H* (0-20) pg/ml B-Natriuretic Peptide 106 H (0-100) pg/ml Albumin 2.9 L (3.4-5.0) gm/dl Procalcitonin 4.42 H (0-0.5) ng/ml Urine Appearance (Clear) Urine Protein (Negative) Urine Glucose (UA) (Negative) Urine Ketones (Negative) Urine Blood (Negative) Urine Nitrite (Negative) Urine Bilirubin (Negative) Ur Leukocyte Esterase (Negative) Urine WBC (Auto) (0-5) /hpf Urine RBC (Auto) (0-2) /hpf U Hyaline Cast (Auto) (0-2) /lpf Amorphous Sediment (None Prsent) 09/03/24 Range/Units Unknown WBC (4.8-10.8) K/ul RBC (4.70-6.10) M/uL Hgb (14.0-18.0) g/dl POC Hgb (14.0-18.0) g/dl Hct (42.0-52.0) % POC Hct (42-52) % RDW Std Deviation (36.4-46.3) fL RDW Coeff of Susan (11.5-14.5) % Neut # (Auto) (1.40-6.50) K/uL Lymph # (Auto) (1.20-3.40) K/uL [place] # (Auto) (0.11-0.59) K/uL POC Sodium (135-144) mmol/L Sodium (136-145) mmol/L Chloride (98-107) mmol/L Anion Gap (3-11) POC BUN (7-18) mg/dl BUN (6-23) mg/dl Creatinine (0.6-1.4) mg/dl POC Creatinine (0.6-1.3) mg/dl BUN/Creatinine Ratio (10-20) Glucose (70-99(Fasting)) mg/dl POC Glucose (other) (70-99) mg/dl Lactate (0.4-2.0) mmol/L POC Ioniz Calcium Katelynn (1.12-1.32) mmol/l AST (13-39) U/L Troponin I High Sens (0-20) pg/ml B-Natriuretic Peptide (0-100) pg/ml Albumin (3.4-5.0) gm/dl Procalcitonin (0-0.5) ng/ml Urine Appearance Turbid A (Clear) Urine Protein 1+ H (Negative) Urine Glucose (UA) 1+ H (Negative) Urine Ketones Trace H (Negative) Urine Blood Trace H (Negative) Urine Nitrite Positive A (Negative) Urine Bilirubin 2+ H (Negative) Ur Leukocyte Esterase 2+ H (Negative) Urine WBC (Auto) 21-50 H (0-5) /hpf Urine RBC (Auto) >20 H (0-2) /hpf U Hyaline Cast (Auto) 3-5 H (0-2) /lpf Amorphous Sediment Present A (None Prsent) Diagnostic Findings XR chest 1V portable HISTORY: 79 years-old Male Sepsis COMPARISON: 02/05/2022 TECHNIQUE: AP view of the chest FINDINGS: Cardiac silhouette is enlarged. The lungs are hypoinflated. Pulmonary vascular congestion with bilateral mixed interstitial and alveolar opacities. Probable small pleural effusions. No pneumothorax. Gaseous distention of the stomach. The bones appear grossly intact. IMPRESSION: Hypoinflation with bilateral mixed interstitial and alveolar opa cities. Findings suggest multifocal pneumonia with asymmetric pulmonary edema considered less likely. Follow-up recommended. Medications Administered ER Medications Given: Normal saline 2L bolus (additional 1L given by EMS) Zosyn 4.5g IV ECG Rate (beats per minute): 96 Rhythm: normal sinus Findings: + LBBB Comparison ECG Date: no prior available Code Status & VTE Plan Code Status DNR/DNI - updated POLST with ben Loya (at bedside) and Biju (over the phone) VTE Prophylaxis Plan VTE Prophylaxis will be ordered: Yes Critical Care Time Critical Care Time: Yes Total Critical Care Time: 35 PG Care Time/CCT Total # of Minutes Spent Total Time Spent with Patient: Total time spent is greater than 50% in coordination of care (as documented) at patient's floor/unit and/or counseling patient: Critical Care Time: Yes Total Critical Care Time: 35 Coding Level of Care Code 39438 INT INP/OBS CARE 3/75MIN Diagnoses Sepsis A41.9 MIKE (acute kidney injury) N17.9 Diarrhea R19.7 Alzheimer disease G30.9; F02.80 Goals of care, counseling/discussion Z71.89 Additional Codes Critical Care Time - Critical Care Time: Yes ([id number])
[2024-09-03] MEDS: NOREPINEPHRINE/D5W 4 MG/250 ML PLCT IV SCH (11:49)
[2024-09-03 12:03] LABS: Adenovirus PCR Not Detected (NotDetected); Bordetella parapertussis PCR Not Detected (NotDetected); Bordetella pertussis PCR Not Detected (NotDetected); Chlamydia pneumoniae PCR Not Detected (NotDetected); Coronavirus 229E PCR Not Detected (NotDetected); Coronavirus CoV-2 (COVID19)PCR Not Detected (NotDetected); Coronavirus HKU1 PCR Not Detected (NotDetected); Coronavirus NL63 PCR Not Detected (NotDetected); Coronavirus OC43PCR Not Detected (NotDetected); Human Metapneumovirus PCR Not Detected (NotDetected); Influenza A PCR Not Detected (NotDetected); Influenza B PCR Not Detected (NotDetected); Mycoplasma pneumoniae PCR Not Detected (NotDetected); Parainfluenza Virus 1 PCR Not Detected (NotDetected); Parainfluenza Virus 2 PCR Not Detected (NotDetected); Parainfluenza Virus 3 PCR Not Detected (NotDetected); Parainfluenza Virus 4 PCR Not Detected (NotDetected); Respiratory Syncytial VirusPCR Not Detected (NotDetected); Rhinovirus/Enterovirus PCR Not Detected (NotDetected)
--- NOTE | 2024-09-03 13:08 | CT Scan Report ---
ABDOMEN AND PELVIS CT WITHOUT CONTRAST CT DOSE: 1576.9 mGy.cm HISTORY: Acute kidney injury with urinary tract infection MIKE, UTI sepsis TECHNIQUE: Multiaxial CT images of the abdomen and pelvis were performed without contrast. A dose lo wering technique was utilized adhering to the principles of ALARA. COMPARISON STUDY: None. FINDINGS: Cardiomegaly with extensive coronary artery calcifications. Trace pleural effusions with de pendent bibasilar consolidation and air bronchograms within a mixed groundglass opacities. No pneumat osis or pneumoperitoneum. The unenhanced spleen, pancreas and adrenal glands are unremarkable. Distended gallbladder with wall thickening and pericholecystic fluid. Unremarkable liver. Cysts of the kidneys measuring up to 4.7 cm on the right. No ureteral calculi or hydronephrosis. Decompressed bladder with wall thickening and F oley catheter in place. Prostatomegaly. Small fat filled left inguinal hernia. Atherosclerosis of the aorta without aneurysm. Nonspecific mid to distal esophageal mild wall thickening. Distended stomach. Mild likely reactive wa ll thickening of the pylorus duodenal junction. Moderate-sized duodenal diverticulum. No high-grade s mall bowel obstruction. Scattered small bowel air-fluid levels. Moderate rectal fecal retention with associated wall thickening and perirectal stranding/edema. Anastomotic sutures in the mid sigmoid. Co lonic diverticulosis without acute diverticulitis. Scattered colonic air-fluid levels. Noninflamed ap pendix. No acute fracture identified. IMPRESSION: 1. Findings suggestive of acute cholecystitis. Findings could be correlated with ultrasound. 2. No urolithiasis or hydronephrosis. 3. Moderate fecal retention of the rectum with probable stercoral proctitis. 4. Colonic diverticulosis. 5. Trace pleural effusions with moderate bibasilar consolidation which may represent atelectasis vers us pneumonia. 6. Additional findings as above. ACT 112: Negative or not required by law. The above report was generated using voice recognition software. It may contain grammatical, syntax o r spelling errors. Electronically signed by: Robin Laboy M.D. 09/03/2024 1:07 PM
[2024-09-03] MEDS: LACTATED RINGER'S 1,000 ML IV SCH (13:27)
--- NOTE | 2024-09-03 15:45 | Ultrasound Report ---
US gallbladder CLINICAL HISTORY: ?acute terence ?CBD dilatation COMPARISON STUDY: CT of the abdomen and pelvis September 03, 2024 at 12:40 PM. FINDINGS: This exam is compromised by suboptimal penetration. The liver lesion identified The common bile duct is partially obscured but there is no evidence for biliary ductal dilatation. The common bi le duct measures 6 mm in caliber. The pancreas is obscured by overlying bowel gas. The gallbladder is moderately distended. The wall is thickened, measuring 5 mm. Sludge and stones within the gallbladde r are present. Sonographic Mathews sign could not be assessed. IMPRESSION: 1. Gallstones and sludge within the gallbladder with gallbladder distention and wall thickening. Whe n correlating with CT from earlier today, the findings are suggestive of acute cholecystitis. 2. Exam compromised by suboptimal penetration. Common bile duct partially obscured but no common bile duct calculi or biliary ductal dilatation identified. ACT 112: Negative or not required by law. Electronically signed by: Srini Carrion M.D. 09/03/2024 3:43 PM
--- NOTE | 2024-09-03 17:53 | XCELERA ---
[id number]
[2024-09-03] MEDS: PIPERACILLIN/TAZOBACTAM 4.5 GM/100 ML BAG IV SCH (17:55)
[2024-09-03 18:09] LABS: Albumin Globulin Ratio 0.9 (0.9-2); Albumin Level 2.7 gm/dl (3.4-5.0); BUN Creatinine Ratio 28.3 (10-20); Bilirubin,Total 0.8 mg/dl (0.2-1.0); Calcium 8.6 mg/dl (8.6-10.3); Creatinine Clr Calc Pharmacy 19.7 ml/min; Globulin 3.1 gm/dl (2.5-4.0); Potassium 4.1 mmol/L (3.5-5.1); Total Protein 5.8 gm/dl (6.0-8.3)
--- NOTE | 2024-09-03 18:15 | Electrocardiogram Report ---
Test Reason : Blood Pressure : */* mmHG Vent. Rate : 96 BPM Atrial Rate : 97 BPM P-R Int : 172 ms QRS Dur : 150 ms QT Int : 406 ms P-R-T Axes : -5 -25 92 degrees QTcB Int : 512 ms Sinus rhythm Premature ventricular complexes Left bundle branch block Abnormal ECG No previous ECGs available Confirmed by Murali Badillo ([id number]) on 09/03/2024 6:14:55 PM Referred By: REFERRED SELF Confirmed By: Murali Badillo
--- NOTE | 2024-09-03 18:16 | Electrocardiogram Report ---
Test Reason : Blood Pressure : */* mmHG Vent. Rate : 84 BPM Atrial Rate : 84 BPM P-R Int : 172 ms QRS Dur : 86 ms QT Int : 382 ms P-R-T Axes : 28 -13 0 degrees QTcB Int : 451 ms Sinus rhythm Intermittent LBBB Abnormal ECG When compared with ECG of 03-Sep-2024 09:29, Left bundle branch block is now transient Premature ventricular complexes are no longer Present Confirmed by Murali Badillo ([id number]) on 09/03/2024 6:15:49 PM Referred By: REFERRED SELF Confirmed By: Murali Badillo
[2024-09-03] MEDS: HEPARIN SOD 5,000 UNIT/0.5 ML VIAL SQ SCH (21:33)
[2024-09-04 06:20] LABS: Basophils # (auto) 0.01 K/uL (0.00-0.20); Basophils % (auto) 0.1 %; Eosinophils # (auto) 0.01 K/uL (0.00-0.50); Eosinophils % (auto) 0.1 %; Hematocrit (blood only) 32.8 % (42.0-52.0); Hemoglobin 10.6 g/dl (14.0-18.0); Immature Granulocytes # (auto) 0.08 K/uL (0.01-0.20); Immature Granulocytes % (auto) 0.6 %; Lymphocytes # (auto) 1.23 K/uL (1.20-3.40); Lymphocytes % (auto) 8.6 %; Mean Corpuscular Hemoglobin 28.9 pg (25.0-34.0); Mean Corpuscular Hgb Conc 32.3 g/dL (32.0-36.0); Mean Corpuscular Volume 89.4 fL (80.0-100.0); Mean Platelet Volume 11.7 fL (9.4-12.4); Monocytes # (auto) 1.06 K/uL (0.11-0.59); Monocytes % (auto) 7.4 %; Neutrophils # (auto) 11.88 K/uL (1.40-6.50); Neutrophils % (auto) 83.2 %; Platelet Count 261 K/uL (130-400); RDW Coefficient of Variation 15.9 % (11.5-14.5); RDW Standard Deviation 52.4 fL (36.4-46.3); Red Blood Count 3.67 M/uL (4.70-6.10); White Blood Count 14.27 K/ul (4.8-10.8)
[2024-09-04 07:09] LABS: Albumin Globulin Ratio 0.9 (0.9-2); Albumin Level 2.6 gm/dl (3.4-5.0); BUN Creatinine Ratio 32.5 (10-20); Bilirubin,Total 0.8 mg/dl (0.2-1.0); Calcium 8.8 mg/dl (8.6-10.3); Creatinine Clr Calc Pharmacy 24.2 ml/min; Globulin 2.9 gm/dl (2.5-4.0); Potassium 4.5 mmol/L (3.5-5.1); Total Protein 5.5 gm/dl (6.0-8.3)
[2024-09-04] MEDS ORDERED: PNEUMOCOCCAL VACCINE (PCV20) 20-VAL CONJ-DIP CRM/PF 0.5 ML SYR IM ONE (09:00)
[2024-09-04] MEDS ORDERED: INFLUENZA VACC TS2024-25(65y+)/PF (IIV3) 0.5mL Syr IM ONE (09:00)
--- NOTE | 2024-09-04 14:04 | Hospitalist Progress Note ---
Date of Service September 04, 2024 Assessment & Plan (1) Sepsis: Plan: Suspect secondary to UTI and acute cholecystitis Patient is on IV Zosyn The son does not want any surgery for acute cholecystitis The son is leaning towards a comfort care approach but would like to speak to the rest of his family to give us a final decision He requested that we do not escalate care (2) MIKE (acute kidney injury): Plan: Suspect secondary to hypotension and pre-renal from diarrhea in setting of valsartan use Last took valsartan 09/01, discontinued since CT A/P ruled out obstruction Improved with IV hydration but patient continues to be very hypoxic. Discontinue IV fluids (3) Acute cholecystitis: Plan: Acute cholecystitis seen on CT abdomen His son does not want any surgery given his demented baseline state Continue IV antibiotics for now until further goals of care decisions have been made. (4) Diarrhea: Plan: Stool and c. diff PCR ordered (5) Alzheimer disease: Plan: Baseline non verbal, full assist, eats with assistance (6) Goals of care, counseling/discussion: Plan: On discussion with sons at bedside and on the phone with new POLST form signed DNR/DNI, not for escalation of care including no vasopressors, ok for trial of antibiotics and IV hydration, no usp artificial nutrition I had further discussion with the son today 09/04 The son is leaning towards a comfort approach, however he will need to check with the rest of the family and give me a decision. Until then, the plan is to not escalate care. Plan VTE Prophylaxis - heparin 5000 units SQ BID Diet - NPO give poor respiratory status and decreased responsiveness Disposition - admit to PCU Admission and Anticipated Discharge Date Admission Date: September 03, 2024 Subjective Patient was seen and examined at 10 AM. He was accompanied by his son at the bedside. Had a detailed discussion with his son. Review of Systems Review of Systems: Unobtainable due to cognitive status Physical Exam Physical Exam: General: Nonverbal at baseline. High flow nasal cannula on. Eyes closed Heart: S1, S2/regular rate and rhythm, no murmur rubs or gallops Lungs: Clear to auscultation bilaterally anteriorly. Normal effort Abdomen: Soft/nontender/nondistended. No hepatosplenomegaly Extremities: No clubbing/cyanosis. No edema Behavior: Unable to assess Results & Data Results & Data Vital Signs (Past 12 Hours) Vital Signs Temp Pulse Pulse Resp BP Pulse Ox O2 Del Method 09/04/24 11:34 37.2 C 78 29 H 133/64 89 L High Flow Nasal Cannula 09/04/24 11:14 75 18 88 L High Flow Nasal Cannula 09/04/24 07:57 37.0 C 75 22 106/59 L 91 High Flow Nasal Cannula 09/04/24 07:30 71 18 95 High Flow Nasal Cannula 09/04/24 07:29 High Flow Nasal Cannula 09/04/24 07:00 77 09/04/24 03:15 70 18 95 High Flow Nasal Cannula 09/04/24 03:08 36.7 C 70 20 125/64 96 High Flow Nasal Cannula O2 Flow Rate FiO2 09/04/24 11:34 09/04/24 11:14 30 50 09/04/24 07:57 09/04/24 07:30 30 55 09/04/24 07:29 30 55 09/04/24 07:00 09/04/24 03:15 30 55 09/04/24 03:08 30 55 PG Care Time/CCT Total # of Minutes Spent Total Time Spent with Patient: Total time spent is greater than 50% in coordination of care (as documented) at patient's floor/unit and/or counseling patient: Coding Level of Care Code 60560 SUB INP/OBS CARE 2/35MIN Diagnoses Sepsis A41.9; R65.20; J96.01 Acute respiratory failure type: with hypoxia Sepsis acute organ dysfunction status: with acute organ dysfunction Sepsis type: sepsis due to unspecified organism Severe sepsis acute organ dysfunction type: acute respiratory failure Severe sepsis shock status: unspecified MIKE (acute kidney injury) N17.9 Acute cholecystitis K81.0 Diarrhea R19.7 Alzheimer disease G30.9; F02.80 Goals of care, counseling/discussion Z71.89 (1) Sepsis Acute respiratory failure type: with hypoxia Sepsis acute organ dysfunction status: with acute organ dysfunction Sepsis type: sepsis due to unspecified organism Severe sepsis acute organ dysfunction type: acute respiratory failure Severe sepsis shock status: unspecified Qualified Code(s): A41.9 - Sepsis, unspecified organism; R65.20 - Severe sepsis without septic shock; J96.01 - Acute respiratory failure with hypoxia
[2024-09-04] MEDS: ACETAMINOPHEN 1,000 MG/100 ML VIAL IV PRN (16:01)
[2024-09-05] MEDS ORDERED: ACETAMINOPHEN 650 MG SUPP PR PRN (09:16)
[2024-09-05] MEDS ORDERED: GLYCOPYRROLATE 0.2 MG/ML VIAL IV PRN (09:16)
[2024-09-05] MEDS ORDERED: LORazepam 2 MG/1 ML VIAL IV PRN (09:16)
--- NOTE | 2024-09-05 10:05 | Palliative Care Consultation ---
Date of Consultation September 05, 2024 Assessment & Plan (1) Multifocal pneumonia: treat symptoms only, wean oxygen and treat associated dyspnea with morphine per orders (2) Acute UTI: continue with PO ABx with comfort as goal (3) Goals of care, counseling/discussion: Attending had discussion with sons at bedside and on the phone earlier today, they are declining any further aggressive treatments and requenosting escalation of care.Decision was made to transition to comfort measures only. I spoked with sons Dario and Leonardo via phone, helped both understand that hospice care is helpful to minimize symptoms and maximize quality of life when life prolonging therapies are no longer being pursued. Leonardo shared that the pt has had no quality in his life for many years and given his current debilitated state he would not wish to prolong his suffering. Both brothers agree that the patient would be more comfortable in [facility] for ongoing hospice care if possible. Pt remains on HFNC and will require weaning if possible to be stable for transport. CM assisting with ensuriing that [facility] will be able to manage the pt at hospice level,of care. Pt has had minimal need for palliative medications, appears to be at his cognitive baseline and comfortable. Please continue with PRN morphine as needed per nonverbal cues of pain/discomfort and wean oxygen as able. (4) MIKE (acute kidney injury): FULL TIME (5) Alzheimer disease: FULL TIME, ativan PRN for terminal anxiety, haldol for hyperactive delirium Plan see above History of Present Illness Reason for Consultation: goals of care Requesting Physician: Margarita Francis MD Attending Physician: Margarita Francis MD History of Present Illness Yifan Garrett is a 79 year old non verbal male with Alzheimers dementia who presents to ER with hypotension and hypoxia. At baseline, he opens his eyes to voice and able to follow simple commands, but doesn't verbally communicate. He i s a full body lift and eats pureed diet with assistance. Pt resides at [facility] where he has had fevers, tachypnea, audible wheezing, new hypoxia and liquid stool. CXR was negative but he was started on Ceftriaxone 1g IM daily to cover for pneumonia. Valsartan was discontinued and ordered to increased oral fluid intake. On 09/03/24, EMS called for hypotension. He received 1L NSS bolus prior to arrival in the ER. He has been admitted for medical mgmt of sepsis/cholecystitis for which family has requested conservative mgmt and no surgical intervention. At baseline he is a full body lift, doesn't communicate, eats with assistance pureed diet. Allergies Allergy/AdvReac Type Severity Reaction Status Date / Time No Known Allergies Allergy Unverified 01/19/24 08:49 Home Medications Medication Instructions Recorded Confirmed Type tamsulosin 0.4 mg capsule 0.4 mg PO DAILY 07/26/22 09/03/24 History vibegron 75 mg tablet (Gemtesa) 75 mg PO DAILY #90 tabs 08/19/22 09/03/24 Rx acetaminophen 325 mg capsule 650 mg PO BID Pain/Fever 11/02/22 09/03/24 History cholecalciferol (vitamin D3) 50 50 mcg PO DAILY 11/02/22 09/03/24 History mcg (2,000 unit) capsule cyanocobalamin (vitamin B-12) 1,000 mcg PO QAM 11/02/22 09/03/24 History 1,000 mcg tablet (Vitamin B-12) magnesium hydroxide 400 mg/5 mL 30 ml PO Q48H PRN Constipation 11/02/22 09/03/24 History oral suspension (Milk of Magnesia) melatonin 3 mg capsule 3 mg PO HS 02/13/23 09/03/24 History acetaminophen 325 mg tablet 650 mg PO Q4H PRN Pain/Fever 09/03/24 09/03/24 History albuterol sulfate 2.5 mg/3 mL 2.5 mg continuous nebulization Q2H 09/03/24 09/03/24 History (0.083 %) solution for nebulization PRN SOB/Wheezing bisacodyl 10 mg rectal suppository 10 mg ME Q48H PRN Constipation 09/03/24 09/03/24 History (Dulcolax (bisacodyl)) cholestyramine (with sugar) 4 gram 2 g PO QAM Loose Stools 09/03/24 09/03/24 History oral powder menthol 4 % topical gel (Biofreeze 1 applic topical BID B/L knee pain 09/03/24 09/03/24 History (menthol)) Patient History Medical History Alzheimer disease Dementia Hypertension Diverticulitis Allergic rhinitis Surgical History S/P rotator cuff repair Bilateral History of cystoscopy Hx of colonoscopy S/P left knee arthroscopy History of left knee replacement History of surgery Pilonidal cyst History of colon resection Sigmoid resection Family History Mother , 91yo Diabetes Heart failure Father , 72yo Coronary heart disease Rheumatic fever Sister Arrhythmia Pacemaker Son No problems noted. Son No problems noted. 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 High flow nasal cannula. Eyes open, tracks but does not follow commands Heart: S1, S2/regular rate and rhythm, no murmur rubs or gallops Lungs: Clear to auscultation bilaterally anteriorly. Normal effort Abdomen: Soft/nontender/nondistended. No hepatosplenomegaly Results & Data Vital Signs (Past 12 Hours) Vital Signs Temp Pulse Pulse Pulse Resp BP Pulse Ox 09/05/24 07:23 61 17 09/05/24 07:05 37.3 C 66 22 123/67 97 09/05/24 03:41 97 H 18 91 09/05/24 02:57 36.8 C 85 21 124/65 93 09/04/24 23:31 61 18 93 09/04/24 22:38 65 09/04/24 22:20 36.5 C 63 18 112/62 94 O2 Del Method O2 Flow Rate FiO2 09/05/24 07:23 High Flow Nasal Cannula 30 55 09/05/24 07:05 High Flow Nasal Cannula 09/05/24 03:41 High Flow Nasal Cannula 35 60 09/05/24 02:57 High Flow Nasal Cannula 09/04/24 23:31 High Flow Nasal Cannula 35 60 09/04/24 22:38 09/04/24 22:20 High Flow Nasal Cannula 35.0 Laboratory Results 09/04/24 09/03/24 09/03/24 Range/Units 05:51 Unknown 18:20 WBC 14.27 H (4.8-10.8) K/ul RBC 3.67 L (4.70-6.10) M/uL Hgb 10.6 L (14.0-18.0) g/dl POC Hgb (14.0-18.0) g/dl Hct 32.8 L (42.0-52.0) % POC Hct (42-52) % MCV 89.4 (80.0-100.0) fL MCH 28.9 (25.0-34.0) pg MCHC 32.3 (32.0-36.0) g/dL RDW Std Deviation 52.4 H (36.4-46.3) fL RDW Coeff of Susan 15.9 H (11.5-14.5) % Plt Count 261 (130-400) K/uL MPV 11.7 (9.4-12.4) fL Immature Gran % (Auto) 0.6 % Neut % (Auto) 83.2 % Lymph % (Auto) 8.6 % [place] % (Auto) 7.4 % Eos % (Auto) 0.1 % Baso % (Auto) 0.1 % Neut # (Auto) 11.88 H (1.40-6.50) K/uL Lymph # (Auto) 1.23 (1.20-3.40) K/uL [place] # (Auto) 1.06 H (0.11-0.59) K/uL Eos # (Auto) 0.01 (0.00-0.50) K/uL Baso # (Auto) 0.01 (0.00-0.20) K/uL Immature Gran # (Auto) 0.08 (0.01-0.20) K/uL PT (9.0-12.0) Seconds INR (0.9-1.1) APTT (21-31) Seconds PTT Ratio VBG pH (7.36-7.41) VBG pCO2 (38-50) mmHg VBG pO2 mmHg VBG HCO3 mmol/L VBG O2 Saturation % VBG Base Excess mEq/L POC Sodium (135-144) mmol/L Sodium 151 H (136-145) mmol/L POC Potassium (3.3-5.0) mmol/L Potassium 4.5 (3.5-5.1) mmol/L POC Chloride (101-112) mmol/L Chloride 119 H (98-107) mmol/L Carbon Dioxide 25 (21-32) mmol/L POC Total CO2 (24-31) mmol/L Anion Gap 7 (3-11) POC Anion Gap (16-25) mmol/L POC BUN (7-18) mg/dl BUN 95 H (6-23) mg/dl Creatinine 2.92 H D (0.6-1.4) mg/dl POC Creatinine (0.6-1.3) mg/dl Est Cr Clr Drug Dosing 24.2 ml/min eGFR 21.29 BUN/Creatinine Ratio 32.5 H (10-20) Glucose 111 H (70-99(Fasting)) mg/dl POC Glucose (other) (70-99) mg/dl Lactate 1.0 (0.4-2.0) mmol/L Calcium 8.8 (8.6-10.3) mg/dl POC Ioniz Calcium Katelynn (1.12-1.32) mmol/l Magnesium (1.7-2.4) mg/dl Total Bilirubin 0.8 (0.2-1.0) mg/dl Direct Bilirubin (0-0.2) mg/dl AST 71 H (13-39) U/L ALT 71 H (7-52) U/L Alkaline Phosphatase 37 (34-104) U/L Troponin I High Sens (0-20) pg/ml B-Natriuretic Peptide (0-100) pg/ml Total Protein 5.5 L (6.0-8.3) gm/dl Albumin 2.6 L (3.4-5.0) gm/dl Globulin 2.9 (2.5-4.0) gm/dl Albumin/Globulin Ratio 0.9 (0.9-2) Procalcitonin (0-0.5) ng/ml Urine Color Dark Yellow Urine Appearance Turbid A (Clear) Urine pH 5.0 (4.5-7.5) Ur Specific [place] 1.029 (1.000-1.030) Urine Protein 1+ H (Negative) Urine Glucose (UA) 1+ H (Negative) Urine Ketones Trace H (Negative) Urine Blood Trace H (Negative) Urine Nitrite Positive A (Negative) Urine Bilirubin 2+ H (Negative) Urine Urobilinogen Negative (Negative) Ur Leukocyte Esterase 2+ H (Negative) Urine WBC (Auto) 21-50 H (0-5) /hpf Urine RBC (Auto) >20 H (0-2) /hpf U Hyaline Cast (Auto) 3-5 H (0-2) /lpf U Epithel Cells (Auto) 0-2 (0-2) /hpf Urine Bacteria (Auto) None Seen (None Seen) Amorphous Sediment Present A (None Prsent) Nasal Screen MRSA (PCR) Negative (Negative) Adenovirus (PCR) (NotDetected) B. pertussis DNA (PCR) (NotDetected) B.parapertussis DNA PCR (NotDetected) C. pneumoniae DNA (PCR) (NotDetected) Coronavirus OC43 (PCR) (NotDetected) Coronavirus HKU1 (PCR) (NotDetected) Coronavirus 229E (PCR) (NotDetected) SARS-CoV-2 (PCR) (NotDetected) Coronavirus NL63 (PCR) (NotDetected) Human Metapneumovir PCR (NotDetected) Influenza Type A (PCR) (NotDetected) Influenza Type B (PCR) (NotDetected) M. pneumoniae (PCR) (NotDetected) Parainfluenza 1 (PCR) (NotDetected) Parainfluenza 2 (PCR) (NotDetected) Parainfluenza 3 (PCR) (NotDetected) Parainfluenza 4 (PCR) (NotDetected) RSV (PCR) (NotDetected) Entero/Rhino (PCR) (NotDetected) 09/03/24 09/03/24 09/03/24 Range/Units 17:40 13:33 11:16 WBC (4.8-10.8) K/ul RBC (4.70-6.10) M/uL Hgb (14.0-18.0) g/dl POC Hgb (14.0-18.0) g/dl Hct (42.0-52.0) % POC Hct (42-52) % MCV (80.0-100.0) fL MCH (25.0-34.0) pg MCHC (32.0-36.0) g/dL RDW Std Deviation (36.4-46.3) fL RDW Coeff of Susan (11.5-14.5) % Plt Count (130-400) K/uL MPV (9.4-12.4) fL Immature Gran % (Auto) % Neut % (Auto) % Lymph % (Auto) % [place] % (Auto) % Eos % (Auto) % Baso % (Auto) % Neut # (Auto) (1.40-6.50) K/uL Lymph # (Auto) (1.20-3.40) K/uL [place] # (Auto) (0.11-0.59) K/uL Eos # (Auto) (0.00-0.50) K/uL Baso # (Auto) (0.00-0.20) K/uL Immature Gran # (Auto) (0.01-0.20) K/uL PT (9.0-12.0) Seconds INR (0.9-1.1) APTT (21-31) Seconds PTT Ratio VBG pH (7.36-7.41) VBG pCO2 (38-50) mmHg VBG pO2 mmHg VBG HCO3 mmol/L VBG O2 Saturation % VBG Base Excess mEq/L POC Sodium (135-144) mmol/L Sodium 147 H (136-145) mmol/L POC Potassium (3.3-5.0) mmol/L Potassium 4.1 (3.5-5.1) mmol/L POC Chloride (101-112) mmol/L Chloride 113 H (98-107) mmol/L Carbon Dioxide 24 (21-32) mmol/L POC Total CO2 (24-31) mmol/L Anion Gap 10 (3-11) POC Anion Gap (16-25) mmol/L POC BUN (7-18) mg/dl BUN 101 H (6-23) mg/dl Creatinine 3.57 H (0.6-1.4) mg/dl POC Creatinine (0.6-1.3) mg/dl Est Cr Clr Drug Dosing 19.7 ml/min eGFR 16.73 BUN/Creatinine Ratio 28.3 H (10-20) Glucose 125 H (70-99(Fasting)) mg/dl POC Glucose (other) (70-99) mg/dl Lactate 1.1 1.9 (0.4-2.0) mmol/L Calcium 8.6 (8.6-10.3) mg/dl POC Ioniz Calcium Katelynn (1.12-1.32) mmol/l Magnesium (1.7-2.4) mg/dl Total Bilirubin 0.8 (0.2-1.0) mg/dl Direct Bilirubin (0-0.2) mg/dl AST 59 H (13-39) U/L ALT 56 H (7-52) U/L Alkaline Phosphatase 38 (34-104) U/L Troponin I High Sens 64.2 H* (0-20) pg/ml B-Natriuretic Peptide (0-100) pg/ml Total Protein 5.8 L (6.0-8.3) gm/dl Albumin 2.7 L (3.4-5.0) gm/dl Globulin 3.1 (2.5-4.0) gm/dl Albumin/Globulin Ratio 0.9 (0.9-2) Procalcitonin (0-0.5) ng/ml Urine Color Urine Appearance (Clear) Urine pH (4.5-7.5) Ur Specific [place] (1.000-1.030) Urine Protein (Negative) Urine Glucose (UA) (Negative) Urine Ketones (Negative) Urine Blood (Negative) Urine Nitrite (Negative) Urine Bilirubin (Negative) Urine Urobilinogen (Negative) Ur Leukocyte Esterase (Negative) Urine WBC (Auto) (0-5) /hpf Urine RBC (Auto) (0-2) /hpf U Hyaline Cast (Auto) (0-2) /lpf U Epithel Cells (Auto) (0-2) /hpf Urine Bacteria (Auto) (None Seen) Amorphous Sediment (None Prsent) Nasal Screen MRSA (PCR) (Negative) Adenovirus (PCR) (NotDetected) B. pertussis DNA (PCR) (NotDetected) B.parapertussis DNA PCR (NotDetected) C. pneumoniae DNA (PCR) (NotDetected) Coronavirus OC43 (PCR) (NotDetected) Coronavirus HKU1 (PCR) (NotDetected) Coronavirus 229E (PCR) (NotDetected) SARS-CoV-2 (PCR) (NotDetected) Coronavirus NL63 (PCR) (NotDetected) Human Metapneumovir PCR (NotDetected) Influenza Type A (PCR) (NotDetected) Influenza Type B (PCR) (NotDetected) M. pneumoniae (PCR) (NotDetected) Parainfluenza 1 (PCR) (NotDetected) Parainfluenza 2 (PCR) (NotDetected) Parainfluenza 3 (PCR) (NotDetected) Parainfluenza 4 (PCR) (NotDetected) RSV (PCR) (NotDetected) Entero/Rhino (PCR) (NotDetected) 09/03/24 09/03/24 09/03/24 Range/Units 11:04 09:47 09:35 WBC (4.8-10.8) K/ul RBC (4.70-6.10) M/uL Hgb (14.0-18.0) g/dl POC Hgb 12.6 L (14.0-18.0) g/dl Hct (42.0-52.0) % POC Hct 37 L (42-52) % MCV (80.0-100.0) fL MCH (25.0-34.0) pg MCHC (32.0-36.0) g/dL RDW Std Deviation (36.4-46.3) fL RDW Coeff of Susan (11.5-14.5) % Plt Count (130-400) K/uL MPV (9.4-12.4) fL Immature Gran % (Auto) % Neut % (Auto) % Lymph % (Auto) % [place] % (Auto) % Eos % (Auto) % Baso % (Auto) % Neut # (Auto) (1.40-6.50) K/uL Lymph # (Auto) (1.20-3.40) K/uL [place] # (Auto) (0.11-0.59) K/uL Eos # (Auto) (0.00-0.50) K/uL Baso # (Auto) (0.00-0.20) K/uL Immature Gran # (Auto) (0.01-0.20) K/uL PT (9.0-12.0) Seconds INR (0.9-1.1) APTT (21-31) Seconds PTT Ratio VBG pH 7.41 (7.36-7.41) VBG pCO2 41 (38-50) mmHg VBG pO2 73 mmHg VBG HCO3 26 mmol/L VBG O2 Saturation 96.5 % VBG Base Excess 1.2 mEq/L POC Sodium 147 H (135-144) mmol/L Sodium (136-145) mmol/L POC Potassium 3.8 (3.3-5.0) mmol/L Potassium (3.5-5.1) mmol/L POC Chloride 109 (101-112) mmol/L Chloride (98-107) mmol/L Carbon Dioxide (21-32) mmol/L POC Total CO2 24 (24-31) mmol/L Anion Gap (3-11) POC Anion Gap 19.0 (16-25) mmol/L POC BUN 81 H (7-18) mg/dl BUN (6-23) mg/dl Creatinine (0.6-1.4) mg/dl POC Creatinine 4.0 H (0.6-1.3) mg/dl Est Cr Clr Drug Dosing ml/min eGFR BUN/Creatinine Ratio (10-20) Glucose (70-99(Fasting)) mg/dl POC Glucose (other) 132 H (70-99) mg/dl Lactate (0.4-2.0) mmol/L Calcium (8.6-10.3) mg/dl POC Ioniz Calcium Katelynn 1.10 L (1.12-1.32) mmol/l Magnesium (1.7-2.4) mg/dl Total Bilirubin (0.2-1.0) mg/dl Direct Bilirubin (0-0.2) mg/dl AST (13-39) U/L ALT (7-52) U/L Alkaline Phosphatase (34-104) U/L Troponin I High Sens (0-20) pg/ml B-Natriuretic Peptide 106 H (0-100) pg/ml Total Protein (6.0-8.3) gm/dl Albumin (3.4-5.0) gm/dl Globulin (2.5-4.0) gm/dl Albumin/Globulin Ratio (0.9-2) Procalcitonin (0-0.5) ng/ml Urine Color Urine Appearance (Clear) Urine pH (4.5-7.5) Ur Specific [place] (1.000-1.030) Urine Protein (Negative) Urine Glucose (UA) (Negative) Urine Ketones (Negative) Urine Blood (Negative) Urine Nitrite (Negative) Urine Bilirubin (Negative) Urine Urobilinogen (Negative) Ur Leukocyte Esterase (Negative) Urine WBC (Auto) (0-5) /hpf Urine RBC (Auto) (0-2) /hpf U Hyaline Cast (Auto) (0-2) /lpf U Epithel Cells (Auto) (0-2) /hpf Urine Bacteria (Auto) (None Seen) Amorphous Sediment (None Prsent) Nasal Screen MRSA (PCR) Negative (Negative) Adenovirus (PCR) Not Detected (NotDetected) B. pertussis DNA (PCR) Not Detected (NotDetected) B.parapertussis DNA PCR Not Detected (NotDetected) C. pneumoniae DNA (PCR) Not Detected (NotDetected) Coronavirus OC43 (PCR) Not Detected (NotDetected) Coronavirus HKU1 (PCR) Not Detected (NotDetected) Coronavirus 229E (PCR) Not Detected (NotDetected) SARS-CoV-2 (PCR) Not Detected (NotDetected) Coronavirus NL63 (PCR) Not Detected (NotDetected) Human Metapneumovir PCR Not Detected (NotDetected) Influenza Type A (PCR) Not Detected (NotDetected) Influenza Type B (PCR) Not Detected (NotDetected) M. pneumoniae (PCR) Not Detected (NotDetected) Parainfluenza 1 (PCR) Not Detected (NotDetected) Parainfluenza 2 (PCR) Not Detected (NotDetected) Parainfluenza 3 (PCR) Not Detected (NotDetected) Parainfluenza 4 (PCR) Not Detected (NotDetected) RSV (PCR) Not Detected (NotDetected) Entero/Rhino (PCR) Not Detected (NotDetected) 09/03/24 Range/Units 09:29 WBC 14.17 H (4.8-10.8) K/ul RBC 4.33 L (4.70-6.10) M/uL Hgb 12.3 L (14.0-18.0) g/dl POC Hgb (14.0-18.0) g/dl Hct 38.2 L (42.0-52.0) % POC Hct (42-52) % MCV 88.2 (80.0-100.0) fL MCH 28.4 (25.0-34.0) pg MCHC 32.2 (32.0-36.0) g/dL RDW Std Deviation 51.7 H (36.4-46.3) fL RDW Coeff of Susan 15.9 H (11.5-14.5) % Plt Count 287 (130-400) K/uL MPV 12.2 (9.4-12.4) fL Immature Gran % (Auto) 0.5 % Neut % (Auto) 86.2 % Lymph % (Auto) 6.8 % [place] % (Auto) 6.4 % Eos % (Auto) 0.0 % Baso % (Auto) 0.1 % Neut # (Auto) 12.23 H (1.40-6.50) K/uL Lymph # (Auto) 0.96 L (1.20-3.40) K/uL [place] # (Auto) 0.90 H (0.11-0.59) K/uL Eos # (Auto) 0.00 (0.00-0.50) K/uL Baso # (Auto) 0.01 (0.00-0.20) K/uL Immature Gran # (Auto) 0.07 (0.01-0.20) K/uL PT 11.2 (9.0-12.0) Seconds INR 1.0 (0.9-1.1) APTT 25 (21-31) Seconds PTT Ratio 0.9 VBG pH (7.36-7.41) VBG pCO2 (38-50) mmHg VBG pO2 mmHg VBG HCO3 mmol/L VBG O2 Saturation % VBG Base Excess mEq/L POC Sodium (135-144) mmol/L Sodium 147 H (136-145) mmol/L POC Potassium (3.3-5.0) mmol/L Potassium 4.0 (3.5-5.1) mmol/L POC Chloride (101-112) mmol/L Chloride 109 H (98-107) mmol/L Carbon Dioxide 26 (21-32) mmol/L POC Total CO2 (24-31) mmol/L Anion Gap 12 H (3-11) POC Anion Gap (16-25) mmol/L POC BUN (7-18) mg/dl BUN 93 H D (6-23) mg/dl Creatinine 3.82 H D (0.6-1.4) mg/dl POC Creatinine (0.6-1.3) mg/dl Est Cr Clr Drug Dosing 18.4 ml/min eGFR 15.43 BUN/Creatinine Ratio 24.3 H (10-20) Glucose 128 H (70-99(Fasting)) mg/dl POC Glucose (other) (70-99) mg/dl Lactate 2.6 H* (0.4-2.0) mmol/L Calcium 9.1 (8.6-10.3) mg/dl POC Ioniz Calcium Katelynn (1.12-1.32) mmol/l Magnesium 2.3 (1.7-2.4) mg/dl Total Bilirubin 0.7 D (0.2-1.0) mg/dl Direct Bilirubin 0.2 (0-0.2) mg/dl AST 47 H (13-39) U/L ALT 40 (7-52) U/L Alkaline Phosphatase 46 (34-104) U/L Troponin I High Sens 63.8 H* (0-20) pg/ml B-Natriuretic Peptide (0-100) pg/ml Total Protein 6.1 (6.0-8.3) gm/dl Albumin 2.9 L (3.4-5.0) gm/dl Globulin (2.5-4.0) gm/dl Albumin/Globulin Ratio (0.9-2) Procalcitonin 4.42 H (0-0.5) ng/ml Urine Color Urine Appearance (Clear) Urine pH (4.5-7.5) Ur Specific [place] (1.000-1.030) Urine Protein (Negative) Urine Glucose (UA) (Negative) Urine Ketones (Negative) Urine Blood (Negative) Urine Nitrite (Negative) Urine Bilirubin (Negative) Urine Urobilinogen (Negative) Ur Leukocyte Esterase (Negative) Urine WBC (Auto) (0-5) /hpf Urine RBC (Auto) (0-2) /hpf U Hyaline Cast (Auto) (0-2) /lpf U Epithel Cells (Auto) (0-2) /hpf Urine Bacteria (Auto) (None Seen) Amorphous Sediment (None Prsent) Nasal Screen MRSA (PCR) (Negative) Adenovirus (PCR) (NotDetected) B. pertussis DNA (PCR) (NotDetected) B.parapertussis DNA PCR (NotDetected) C. pneumoniae DNA (PCR) (NotDetected) Coronavirus OC43 (PCR) (NotDetected) Coronavirus HKU1 (PCR) (NotDetected) Coronavirus 229E (PCR) (NotDetected) SARS-CoV-2 (PCR) (NotDetected) Coronavirus NL63 (PCR) (NotDetected) Human Metapneumovir PCR (NotDetected) Influenza Type A (PCR) (NotDetected) Influenza Type B (PCR) (NotDetected) M. pneumoniae (PCR) (NotDetected) Parainfluenza 1 (PCR) (NotDetected) Parainfluenza 2 (PCR) (NotDetected) Parainfluenza 3 (PCR) (NotDetected) Parainfluenza 4 (PCR) (NotDetected) RSV (PCR) (NotDetected) Entero/Rhino (PCR) (NotDetected) Diagnostic Findings Chest X-Ray 09/03/24 09:16 XR chest 1V portable HISTORY: 79 years-old Male Sepsis COMPARISON: 02/05/2022 TECHNIQUE: AP view of the chest FINDINGS: Cardiac silhouette is enlarged. The lungs are hypoinflated. Pulmonary vascular congestion with bilateral mixed interstitial and alveolar opacities. Probable small pleural effusions. No pneumothorax. Gaseous distention of the stomach. The bones appear grossly intact. IMPRESSION: Hypoinflation with bilateral mixed interstitial and alveolar opacities. Findings suggest multifocal pneumonia with asymmetric pulmonary edema considered less likely. Follow-up recommended. ACT 112: Negative or not required by law. The above report was generated using voice recognition software. It may contain grammatical, syntax or spelling errors. Electronically signed by: Robin Laboy M.D. 09/03/2024 9:52 AM Abdomen/Pelvis CT 09/03/24 10:[address] WITHOUT CONTRAST CT DOSE: 1576.9 mGy.cm HISTORY: Acute kidney injury with urinary tract infection MIKE, UTI sepsis TECHNIQUE: Multiaxial CT images of the abdomen and pelvis were performed without contrast. A dose lowering technique was utilized adhering to the principles of ALARA. COMPARISON STUDY: None. FINDINGS: Cardiomegaly with extensive coronary artery calcifications. Trace pleural effusions with dependent bibasilar consolidation and air bronchograms w ithin a mixed groundglass opacities. No pneumatosis or pneumoperitoneum. The unenhanced spleen, pancreas and adrenal glands are unremarkable. Distended gallbladder with wall thickening and pericholecystic fluid. Unremarkable liver. Cysts of the kidneys measuring up to 4.7 cm on the right. No ureteral calculi or hydronephrosis. Decompressed bladder with wall thickening and Goldman catheter in place. Prostatomegaly. Small fat filled left inguinal hernia. Atherosclerosis of the aorta without aneurysm. Nonspecific mid to distal esophageal mild wall thickening. Distended stomach. Mild likely reactive wall thickening of the pylorus duodenal junction. Moderate- sized duodenal diverticulum. No high-grade small bowel obstruction. Scattered small bowel air-fluid levels. Moderate rectal fecal retention with associated wall thickening and perirectal stranding/edema. Anastomotic sutures in the mid sigmoid. Colonic diverticulosis without acute diverticulitis. Scattered colonic air-fluid levels. Noninflamed appendix. No acute fracture identified. IMPRESSION: 1. Findings suggestive of acute cholecystitis. Findings could be correlated with ultrasound. 2. No urolithiasis or hydronephrosis. 3. Moderate fecal retention of the rectum with probable stercoral proctitis. 4. Colonic diverticulosis. 5. Trace pleural effusions with moderate bibasilar consolidation which may represent atelectasis versus pneumonia. 6. Additional findings as above. ACT 112: Negative or not required by law. The above report was generated using voice recognition software. It may contain grammatical, syntax or spelling errors. Electronically signed by: Robin Laboy M.D. 09/03/2024 1:07 PM Gallbladder Ultrasound 09/03/24 13:52 US gallbladder CLINICAL HISTORY: ?acute terence ?CBD dilatation COMPARISON STUDY: CT of the abdomen and pelvis September 03, 2024 at 12:40 PM. FINDINGS: This exam is compromised by suboptimal penetration. The liver lesion identified The common bile duct is partially obscured but there is no evidence for biliary ductal dilatation. The common bile duct measures 6 mm in caliber. The pancreas is obscured by overlying bowel gas. The gallbladder is moderately distended. The wall is thickened, measuring 5 mm. Sludge and stones within the gallbladder are present. Sonographic Mathews sign could not be assessed. IMPRESSION: 1. Gallstones and sludge within the gallbladder with gallbladder distention and wall thickening. When correlating with CT from earlier today, the findings are suggestive of acute cholecystitis. 2. Exam compromised by suboptimal penetration. Common bile duct partially obscured but no common bile duct calculi or biliary ductal dilatation identified. ACT 112: Negative or not required by law. Electronically signed by: Srini Carrion M.D. 09/03/2024 3:43 PM Medications Administered Current Inpatient Medications Acetaminophen (Acetaminophen 650 Mg Supp) 650 mg ME Q6H PRN PRN Reason: Fever 37.8C or Above Stop: 10/05/24 09:15 Glycopyrrolate (Glycopyrrolate 0.2 Mg/Ml Vial) 0.4 mg IV Q4H PRN PRN Reason: Rattling Secretions or Pulm Congestion Stop: 10/05/24 09:15 Heparin Sodium (Porcine) (Heparin Sod 5,000 Unit/0.5 Ml Vial) 5,000 units SQ Q12 [id number] Stop: 10/03/24 20:59 Last Admin: 09/05/24 09:57 Dose: Not Given Acetaminophen (Ofirmev) 1,000 mg in 100 mls @ 400 mls/hr IV Q8H PRN PRN Reason: Pain or Fever Stop: 09/06/24 13:12 Last Infusion: 09/04/24 16:22 Dose: Infused Piperacillin Sod/Tazobactam Sod (Zosyn) 4.5 gm in 100 mls @ 25 mls/hr IV Q12H YAHAIRA; Protocol Stop: 09/05/24 17:29 Last Infusion: 09/05/24 09:31 Dose: Infused Lorazepam (Lorazepam 2 Mg/1 Ml Vial) 0.5 mg IV Q4H PRN PRN Reason: Anxiety/Agitation Stop: 10/05/24 09:15 Morphine Sulfate (Morphine Sulfate 2 Mg/Ml Carp) 2 mg IV Q4H PRN PRN Reason: Pain or Respiratory Distress Stop: 09/19/24 09:15 Ondansetron HCl (Ondansetron Inj 2 Mg/Ml 2 Ml Vial) 4 mg IV Q4H PRN PRN Reason: Nausea &/or Vomiting Stop: 10/05/24 09:15 PG Care Time/CCT Total # of Minutes Spent Total Time Spent with Patient: Total time spent is greater than 50% in coordination of care (as documented) at patient's floor/unit and/or counseling patient: Advanced Care Planning 29340 Advanced Care Planning 30 [place] [address] INT INP/OBS CARE 2/55MIN Patient Type New History Problem Focused Exam Problem Focused Medical Decision Making Moderate Complexity Diagnoses Multifocal pneumonia J18.9 Acute UTI N39.0 Goals of care, counseling/discussion Z71.89 MIKE (acute kidney injury) N17.9 Alzheimer disease G30.9; F02.80 Additional Codes Advanced Care Planning - 43921 Advanced Care Planning 30 Min: 14784 Advanced Care Planning 30 Min ([id number])
--- NOTE | 2024-09-05 14:42 | Hospitalist Progress Note ---
Date of Service September 05, 2024 Assessment & Plan (1) Sepsis: Plan: Suspect secondary to UTI and acute cholecystitis The son does not want any surgery for acute cholecystitis Decision was made to switch goals of care to comfort measures only. Palliative care consulted Comfort care orders placed Discontinue antibiotics (2) MIKE (acute kidney injury): Plan: Suspect secondary to hypotension and pre-renal from diarrhea in setting of valsartan use Last took valsartan 09/01, discontinued since CT A/P ruled out obstruction Improved with IV hydration but patient continues to be very hypoxic. Discontinue IV fluids Comfort measures only (3) Acute cholecystitis: Plan: Acute cholecystitis seen on CT abdomen His son does not want any surgery given his demented baseline state Comfort care has been decided on Discontinued IV antibiotics after speaking to the sonLeonardo (4) Diarrhea: Plan: Comfort care (5) Alzheimer disease: Plan: Baseline non verbal, full assist, eats with assistance (6) Goals of care, counseling/discussion: Plan: On discussion with sons at bedside and on the phone with new POLST form signed DNR/DNI, not for escalation of care including no vasopressors, ok for trial of antibiotics and IV hydration, no snf artificial nutrition I had further discussion with the sonLeonardo again today 09/05 Decision was made to switch to comfort measures only Comfort care orders were placed Palliative care involved Dario, patient's other son wanted to speak to me. I called him on his cell [phone]. Left a message awaiting callback. Plan VTE Prophylaxis - heparin 5000 units SQ BID Diet -comfort feeding Titrate O2 down. Hopeful for discharge back to [facility] with hospice if they are able to take care of him. Case management involved. Admission and Anticipated Discharge Date Admission Date: September 03, 2024 Subjective Patient was seen and examined at 9:50 AM. He is nonverbal at baseline but today he is awake and alert. Physical Exam Physical Exam: General: Nonverbal at baseline. High flow nasal cannula on. Eyes open. Slight ly fidgety with his hands. Heart: S1, S2/regular rate and rhythm, no murmur rubs or gallops Lungs: Clear to auscultation bilaterally anteriorly. Normal effort Abdomen: Soft/nontender/nondistended. No hepatosplenomegaly Behavior: Cooperative Results & Data Results & Data Vital Signs (Past 12 Hours) Vital Signs Temp Pulse Pulse Pulse Resp BP Pulse Ox 09/05/24 13:00 09/05/24 11:11 37.0 C 67 22 145/68 H 93 09/05/24 10:49 61 15 96 09/05/24 09:16 09/05/24 07:23 61 17 09/05/24 07:05 37.3 C 66 22 123/67 97 09/05/24 05:53 65 09/05/24 03:41 97 H 18 91 09/05/24 02:57 36.8 C 85 21 124/65 93 Pulse Ox O2 Del Method O2 Del Method O2 Flow Rate FiO2 09/05/24 13:00 95 High Flow Nasal Cannula 09/05/24 11:11 High Flow Nasal Cannula 09/05/24 10:49 High Flow Nasal Cannula 25 40 09/05/24 09:16 High Flow Nasal Cannula 25 40 09/05/24 07:23 High Flow Nasal Cannula 30 55 09/05/24 07:05 High Flow Nasal Cannula 09/05/24 05:53 09/05/24 03:41 High Flow Nasal Cannula 35 60 09/05/24 02:57 High Flow Nasal Cannula PG Care Time/CCT Total # of Minutes Spent Total Time Spent with Patient: Total time spent is greater than 50% in coordination of care (as documented) at patient's floor/unit and/or counseling patient: Coding Level of Care Code 45171 SUB INP/OBS CARE 2/35MIN Diagnoses Sepsis A41.9; R65.20; J96.01 Acute respiratory failure type: with hypoxia Sepsis acute organ dysfunction status: with acute organ dysfunction Sepsis type: sepsis due to unspecified organism Severe sepsis acute organ dysfunction type: acute respiratory failure Severe sepsis shock status: unspecified MIKE (acute kidney injury) N17.9 Acute cholecystitis K81.0 Diarrhea R19.7 Alzheimer disease G30.9; F02.80 Goals of care, counseling/discussion Z71.89 (1) Sepsis Acute respiratory failure type: with hypoxia Sepsis acute organ dysfunction status: with acute organ dysfunction Sepsis type: sepsis due to unspecified organism Severe sepsis acute organ dysfunction type: acute respiratory failure Severe sepsis shock status: unspecified Qualified Code(s): A41.9 - Sepsis, unspecified organism; R65.20 - Severe sepsis without septic shock; J96.01 - Acute respiratory failure with hypoxia
[2024-09-05 15:13] VITALS: PULSE 69
[2024-09-05 15:39] VITALS: BP 125/61; TEMP 99
[2024-09-05 16:27] VITALS: RESP 24; O2SAT 94
--- NOTE | 2024-09-06 13:01 | Discharge Summary ---
Date of Service September 06, 2024 Admission HPI Per Admitting Provider Yifan Garrett is a 79 year old non verbal male with Alzheimers dementia who presents to the ER with hypotension and hypoxia. Unable to get any history from patient given non verbal with dementia at baseline. 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 History obtained from ER provider, hand over noted and FCO Hernadez (charge nurse at [facility]). Patient spiked a temperature yesterday morning of 102 degrees Fahrenheit around 6am. He was seen by Dr Long and had increased respiratory rate 30, audible wheezing, new hypoxia. CXR was negative but he was started on Ceftriaxone 1g IM daily to cover for pneumonia. Valsartan was discontinued and ordered to increased oral fluid intake. Overnight he started having liquid stool and duoneb for wheezing and shortness of breath. This morning he was more hypotensive with his sBP in 50s and EMS called. He received 1L NSS bolus prior to arrival in the ER. At baseline he is a full body lift, doesn't communicate, eats with assistance pureed diet. He arrives with a POLST form wanting full resuscitation however ER provider discussed with his son over the phone and wishes to change this to DNR/DNI. Admission Exam Per Admitting Provider Constitutional: well developed and + acute distress (increased respiratory rate); + not well nourished Eyes: PERRL, conjunctivae normal, anicteric sclerae ENMT: external ear and nose normal, oropharynx normal Respiratory: normal respiratory effort; no respiratory distress Auscultation: + rhonchi (throughout); breath sounds present, no diminished lung sounds and no wheezes Cardiovascular: Rate/Rhythm: regular rate and regular rhythm Gastrointestinal (Abdomen): Inspection/Auscultation: + abdomen distended Percussion/Palpation: abdomen soft; abdomen nontender, no guarding and abdomen not rigid Skin: no rashes, warm and dry (no areas of cellulitis noted) Neurologic: moves all extremities and awake; not confused Psychiatric: Orientation: alert (to voice); + not oriented x 3 (non verbal at baseline) Genitourinary: no CVA tenderness Principal Diagnosis Sepsis likely due to urinary tract infection and acute cholecystitis Acute kidney injury Hypernatremia Discharge Exam General: Nonverbal at baseline. On nasal cannula. Eyes open. Slightly fidgety with his hands. Patient appears comfortable. Accompanied by his son at the bedside. Behavior: Cooperative Discharge Data Allergies Allergy/AdvReac Type Severity Reaction Status Date / Time No Known Allergies Allergy Unverified 01/19/24 08:49 Consultations 09/03/24 12:30 ED Decision to Admit Stat 09/04/24 16:39 Consult Palliative Care Routine Ordered Studies Chest X-Ray 09/03/24 09:16 XR chest 1V portable HISTORY: 79 years-old Male Sepsis COMPARISON: 02/05/2022 TECHNIQUE: AP view of the chest FINDINGS: Cardiac silhouette is enlarged. The lungs are hypoinflated. Pulmonary vascular congestion with bilateral mixed interstitial and alveolar opacities. Probable small pleural effusions. No pneumothorax. Gaseous distention of the stomach. The bones appear grossly intact. IMPRESSION: Hypoinflation with bilateral mixed interstitial and alveolar opacities. Findings suggest multifocal pneumonia with asymmetric pulmonary edema considered less likely. Follow-up recommended. ACT 112: Negative or not required by law. The above report was generated using voice recognition software. It may contain grammatical, syntax or spelling errors. Electronically signed by: Robin Laboy M.D. 09/03/2024 9:52 AM Abdomen/Pelvis CT 09/03/24 10:[address] WITHOUT CONTRAST CT DOSE: 1576.9 mGy.cm HISTORY: Acute kidney injury with urinary tract infection MIKE, UTI sepsis TECHNIQUE: Multiaxial CT images of the abdomen and pelvis were performed without contrast. A dose lowering technique was utilized adhering to the principles of ALARA. COMPARISON STUDY: None. FINDINGS: Cardiomegaly with extensive coronary artery calcifications. Trace pleural effusions with dependent bibasilar consolidation and air bronchograms within a mixed groundglass opacities. No pneumatosis or pneumoperitoneum. The unenhanced spleen, pancreas and adrenal glands are unremarkable. Distended gallbladder with wall thickening and pericholecystic fluid. Unremarkable liver. Cysts of the kidneys measuring up to 4.7 cm on the right. No ureteral calculi or hydronephrosis. Decompressed bladder with wall thickening and Goldman catheter in place. Prostatomegaly. Small fat filled left inguinal hernia. Atherosclerosis of the aorta without aneurysm. Nonspecific mid to distal esophageal mild wall thickening. Distended stomach. Mild likely reactive wall thickening of the pylorus duodenal junction. Moderate- sized duodenal diverticulum. No high-grade small bowel obstruction. Scattered small bowel air-fluid levels. Moderate rectal fecal retention with associated wall thickening and perirectal stranding/edema. Anastomotic sutures in the mid sigmoid. Colonic diverticulosis without acute diverticulitis. Scattered colonic air-fluid levels. Noninflamed appendix. No acute fracture identified. IMPRESSION: 1. Findings suggestive of acute cholecystitis. Findings could be correlated with ultrasound. 2. No urolithiasis or hydronephrosis. 3. Moderate fecal retention of the rectum with probable stercoral proctitis. 4. Colonic diverticulosis. 5. Trace pleural effusions with moderate bibasilar consolidation which may represent atelectasis versus pneumonia. 6. Additional findings as above. ACT 112: Negative or not required by law. The above report was generated using voice recognition software. It may contain grammatical, syntax or spelling errors. Electronically signed by: Robin Laboy M.D. 09/03/2024 1:07 PM Gallbladder Ultrasound 09/03/24 13:52 US gallbladder CLINICAL HISTORY: ?acute terence ?CBD dilatation COMPARISON STUDY: CT of the abdomen and pelvis September 03, 2024 at 12:40 PM. FINDINGS: This exam is compromised by suboptimal penetration. The liver lesion identified The common bile duct is partially obscured but there is no evidence for biliary ductal dilatation. The common bile duct measures 6 mm in caliber. The pancreas is obscured by overlying bowel gas. The gallbladder is moderately distended. The wall is thickened, measuring 5 mm. Sludge and stones within the gallbladder are present. Sonographic Mathews sign could not be assessed. IMPRESSION: 1. Gallstones and sludge within the gallbladder with gallbladder distention and wall thickening. When correlating with CT from earlier today, the findings are suggestive of acute cholecystitis. 2. Exam compromised by suboptimal penetration. Common bile duct partially obscured but no common bile duct calculi or biliary ductal dilatation identified. ACT 112: Negative or not required by law. Electronically signed by: Srini Carrion M.D. 09/03/2024 3:43 PM 09/03/24 10:54 CT Abdomen and Pelvis [CT abd pelvis wo con] Stat 09/03/24 13:52 US gallbladder Routine Hospital Course (1) Sepsis: Suspect secondary to UTI and acute cholecystitis The son does not want any surgery for acute cholecystitis Decision was made to switch goals of care to comfort measures only. Palliative care consulted Comfort care orders placed Discontinue antibiotics (2) MIKE (acute kidney injury): Suspect secondary to hypotension and pre-renal from diarrhea in setting of valsartan use Last took valsartan 09/01, discontinued since CT A/P ruled out obstruction Improved with IV hydration but patient continues to be very hypoxic. Discontinue IV fluids Comfort measures only (3) Acute cholecystitis: Acute cholecystitis seen on CT abdomen His son does not want any surgery given his demented baseline state Comfort care has been decided on Discontinued IV antibiotics after speaking to the sonLeonardo (4) Diarrhea: Comfort care (5) Alzheimer disease: Baseline non verbal, full assist, eats with assistance (6) Goals of care, counseling/discussion: On discussion with sons at bedside and on the phone with new POLST form signed DNR/DNI, not for escalation of care including no vasopressors, ok for trial of antibiotics and IV hydration, no intermodal dispatcher artificial nutrition I had further discussion with the sonLeonardo again today 09/05 Decision was made to switch to comfort measures only Comfort care orders were placed Palliative care involved I spoke to both the sons during this hospital stay and they are all in agreement with switching goals of care to comfort care, hospice. Plan Titrated O2 down to 5 L. Patient is going back to [facility] with hospice Total Time Total Time Spent Total Time Spent (In Minutes): 35 Discharge Plan Discharge Items Patient Disposition: Transfer [facility] Reason For Visit: SEVERE UTI SEPSIS Discharge Diagnosis: Sepsis likely due to urinary tract infection and acute cholecystitis Acute kidney injury Hypernatremia Activity: Resume your previous activity Non-emergency contact: Primary Care Provider Call non-emergency contact if: you have any medication questions and your symptoms worsen Follow-up/Referrals: Soy Light MD [Primary Care Provider] - Diet: Regular Diet Comment: Minced and moist diet Addtl Attending Provider Instructions: Advised to note that you are being discharged back to [facility] with hospice Pending Studies at Discharge: No Stand-Alone Forms: My [facility] Skilled Items Patient informed of condition?: Yes DNR: Yes Discharge Level of Care: Other Communicable Disease: No Discharge Prognosis: Stable Lines: None Urinary Catheter: No Medications and DC Order Prescriptions: Continued magnesium hydroxide [Milk of Magnesia] 400 mg/5 mL suspension 30 ml PO Q48H PRN (Reason: Constipation) Rx Instructions: Give if no BM for 2 days Gemtesa 75 mg tablet 75 mg PO DAILY Qty: 90 3RF tamsulosin 0.4 mg capsule 0.4 mg PO DAILY acetaminophen 325 mg capsule 650 mg PO BID MDD 3g/24hr Rx Instructions: May take additional for pain/fever as needed. Do not exceed 3g/24hr melatonin 3 mg capsule 3 mg PO HS acetaminophen 325 mg Tablet 650 mg PO Q4H MDD 3g/24hr PRN (Reason: Pain/Fever) albuterol sulfate 2.5 mg /3 mL (0.083 %) solution for nebulization 2.5 mg continuous nebulization Q2H PRN (Reason: SOB/Wheezing) bisacodyl [Dulcolax (bisacodyl)] 10 mg Suppository 10 mg FL Q48H PRN (Reason: Constipation) Rx Instructions: Give if no BM from MOM cholestyramine (with sugar) 4 gram Powder 2 g PO QAM Rx Instructions: no meds 1 hr before/4-6 hr after dose Biofreeze (menthol) 4 % Gel 1 applic TOPICAL BID Discontinued cholecalciferol (vitamin D3) 50 mcg (2,000 unit) capsule 50 mcg PO DAILY cyanocobalamin (vitamin B-12) [Vitamin B-12] 1,000 mcg tablet 1,000 mcg PO QAM Discharge Orders: Discharge Order (Routine); Ordered 09/06/24 Ordered By: Margarita Lakhani/Other Patient Handouts: Urinary Tract Infections in Men Admission Data Admit Date/Time: 09/03/24 12:51 Attending Provider: Margarita Francis Admit Provider: Bharath Chavez Primary Care Provider: Soy Light Other Providers: Haleigh Gorman; [facility]Referral [facility]; [facility]; Bharath Chavez; Anne Iyer Other Interventions: Discharge Summary Assessment (RN) Last Done: 09/06/24 13:59
[2024-09-06] MEDS: MoRPHine SULFATE 2 MG/ML CARP IV PRN (15:18)
[2024-09-06] MEDS: ONDANSETRON INJ 2 MG/ML 2 ML VIAL IV PRN (15:18)
== END 2024-09-06 15:43 | disposition hospice, inpatient (51) | DRG 871 ==
LOC: ED 08:57 → OR 12:50 → 2S 12:51 → SUATTDRO 12:51 → OR 13:00 → 3W 09-05 22:04